=== PATIENT | male | born 1955 | race Caucasian/White ===

== ENCOUNTER 2017-04-04 15:15 | Emergency (ER) | payer OTHER, MEDICARE, MEDICAID ==
[2017-04-04] MEDS ORDERED: LIDOCAINE 5% (700 MG) TRANSDERMAL ADH..PATCH TP ONE (15:34)
[2017-04-04] MEDS ORDERED: IBUPROFEN 600 MG TABLET PO ONE (15:34)
[2017-04-04] MEDS ORDERED: TRAMADOL HCL 50 MG TABLET PO ONE (15:35)
--- NOTE | 2017-04-04 15:39 | ER Document Report ---
ED Medical Screen (RME) - General Chief Complaint: Psych Problem Stated Complaint: BACK PAIN Time Seen by Provider: 04/04/17 15:28 Notes: The patient is a 61-year-old male, past medical history bipolar, PTSD, chronic back pain for 10 years after a failed lumbar fusion surgery, presents with increasing pain over the past few weeks. [facility] He takes Valium and Tylenol without much relief of his symptoms. Patient says that the pain is so severe that he wants to kill himself now. He has a history of multiple suicide attempts, including overdoses and attempted hangings. Denies saddle anesthesia, change in bowel or bladder, numbness, tingling, fevers, chest pain, SOB or suicide attempt. PE: RRR. CTAB. Midline lumbar tenderness. Expressing suicidal thoughts. I have greeted and performed a rapid initial assessment of this patient. A comprehensive ED assessment and evaluation of the patient, analysis of test results and completion of the medical decision making process will be conducted by additional ED providers. TRAVEL OUTSIDE OF THE [place]S. IN LAST 30 DAYS: No - Related Data Allergies/Adverse Reactions: Penicillins Allergy (Unknown, Verified 04/04/17 15:20) Past Medical History - Past Medical History Cardiac Medical History: Reports: Hx Hypertension Pulmonary Medical History: Reports: Hx COPD, Hx Pneumonia - x 3 Denies: Hx Tuberculosis Endocrine Medical History: Reports: Hx Hypothyroidism Renal/ Medical History: Denies: Hx Peritoneal Dialysis Musculoskeltal Medical History: Reports Hx Arthritis Psychiatric Medical History: Reports: Hx Attention Deficit Hyperactivity Disorder, Hx Bipolar Disorder Denies: Hx Depression Past Surgical History: Reports: Hx Orthopedic Surgery - spinal fusion at lower lumbar area - Immunizations Hx Diphtheria, Pertussis, Tetanus Vaccination: Yes Physical Exam - Vital signs Vitals: Temp Pulse Resp BP Pulse Ox 98.9 F 97 18 170/99 H 95 04/04/17 15:21 04/04/17 15:21 04/04/17 15:21 04/04/17 15:21 04/04/17 15:21 Course - Vital Signs Vital signs: Temp Pulse Resp BP Pulse Ox 98.9 F 97 18 170/99 H 95 04/04/17 15:21 04/04/17 15:21 04/04/17 15:21 04/04/17 15:21 04/04/17 15:21
[2017-04-04 16:57] LABS: ABSOLUTE EOSINOPHILS # (AUTO) 0.1 10^3/uL (0.0-0.6); ABSOLUTE LYMPHOCYTES (AUTO) 1.2 10^3/uL (0.5-4.7); ABSOLUTE MONOCYTES (AUTO) 0.3 10^3/uL (0.1-1.4); ABSOLUTE NEUT (AUTO) 3.7 10^3/uL (1.7-8.2); BASOPHILS % (AUTO) 0.5 % (0-2); EOSINOPHILS % (AUTO) 2.2 % (0-6); HEMATOCRIT 41.7 % (37.9-51.0); HEMOGLOBIN 13.9 g/dL (13.5-17.0); LYMPHOCYTES % (AUTO) 22.7 % (13-45); MEAN CORPUSCULAR HEMOGLOBIN 31.4 pg (27.0-33.4); MEAN CORPUSCULAR HGB CONC 33.4 g/dL (32.0-36.0); MEAN CORPUSCULAR VOLUME 94 fl (80-97); MONOCYTES % (AUTO) 5.8 % (3-13); RED BLOOD COUNT 4.43 10^6/uL (4.35-5.55); RED CELL DISTRIBUTION WIDTH 14.3 % (11.5-14.0); SEGMENTED NEUTROPHILS % (AUTO) 68.8 % (42-78); WHITE BLOOD COUNT 5.4 10^3/uL (4.0-10.5)
[2017-04-04 17:12] LABS: ALANINE AMINOTRANSFERASE 33 U/L (21-72); ALBUMIN 4.2 g/dL (3.5-5.0); ALKALINE PHOSPHATASE 108 U/L (38-126); ANION GAP 10 (5-19); ASPARTATE AMINO TRANSFERASE 26 U/L (17-59); BILIRUBIN,DIRECT 0.3 mg/dL (0.0-0.4); BILIRUBIN,TOTAL 0.6 mg/dL (0.2-1.3); BLOOD UREA NITROGEN 9 mg/dL (7-20); CALCIUM 9.3 mg/dL (8.4-10.2); CARBON DIOXIDE 24 mmol/L (22-30); CHLORIDE 104 mmol/L (98-107); CREATININE RESULT 1.12 mg/dL (0.52-1.25); GLUCOSE 103 mg/dL (75-110); POTASSIUM 4.5 mmol/L (3.6-5.0); SODIUM 138.1 mmol/L (137-145)
[2017-04-04 17:16] LABS: ALCOHOL < 10 mg/dL (NONE DETECTED)
--- NOTE | 2017-04-04 17:35 | ER Document Report ---
ED Psych Disorder / Suicide - General Chief Complaint: Psych Problem Stated Complaint: BACK PAIN Time Seen by Provider: 04/04/17 15:28 Mode of Arrival: Ambulatory Information source: Patient TRAVEL OUTSIDE OF THE [place] IN LAST 30 DAYS: No - HPI Patient complains to provider of: Suicidal ideation Onset was: Cannot confirm Quality of pain: Achy Severity: Moderate Pain Level: 3 Suicide Risk Factors: Chronic illness, Depressed Normal mood: Yes Associated symptoms: Flat affect Similar symptoms previously: Yes Notes: Patient is a 61-year-old male with history of depression who presents to the emergency room complaining of chronic low back pain, which has worsened so bad that patient wants to kill himself by hanging, he reports a history of multiple suicide attempts in the past, in fact he did try to hang himself at one point in time but the branch that he attempted to hang himself broke prior to suicide completion, he states his overdose in the past as well, he is accompanied by his fiance who confirms that he has verbalized his recent intent to hang himself, and that they live out in the [place], she works during the day so he would have the means to actually complete a suicide attempt patient [facility] up at the [place] for [facility] health care, and unfortunately that process has been slow, states he is unable to see a psychiatrist until July of this year - Related Data Allergies/Adverse Reactions: Penicillins Allergy (Unknown, Verified 04/04/17 15:20) Home Medications: Current Home Medications Acetaminophen [Extra Strength Non-Aspirin] 3 tab PO TID 04/04/17 [History] Fluoxetine HCl 20 mg PO QAM 04/04/17 [History] Magnesium Oxide [Mag-Ox 400 mg Tablet] 800 mg PO QHS 04/04/17 [History] Pyridoxine HCl 50 mg PO QAM 04/04/17 [History] Past Medical History - General Information source: Patient - Social History Smoking Status: Current Every Day Smoker Chew tobacco use (# tins/day): No Frequency of alcohol use: Social Drug Abuse: Marijuana Family History: COPD Patient has suicidal ideation: Yes Patient has homicidal ideation: No - Past Medical History Cardiac Medical History: Reports: Hx Hypertension Pulmonary Medical History: Reports: Hx COPD, Hx Pneumonia - x 3 Denies: Hx Tuberculosis Endocrine Medical History: Reports: Hx Hypothyroidism Renal/ Medical History: Denies: Hx Peritoneal Dialysis Musculoskeltal Medical History: Reports Hx Arthritis Psychiatric Medical History: Reports: Hx Attention Deficit Hyperactivity Disorder, Hx Bipolar Disorder Denies: Hx Depression Past Surgical History: Reports: Hx Orthopedic Surgery - spinal fusion at lower lumbar area - Immunizations Hx Diphtheria, Pertussis, Tetanus Vaccination: Yes Review of Systems - Review of Systems Constitutional: No symptoms reported EENT: No symptoms reported Cardiovascular: No symptoms reported Respiratory: No symptoms reported Gastrointestinal: No symptoms reported Genitourinary: No symptoms reported Male Genitourinary: No symptoms reported Musculoskeletal: See HPI Skin: No symptoms reported Hematologic/Lymphatic: No symptoms reported Neurological/Psychological: See HPI -: Yes All other systems reviewed and negative Physical Exam - Vital signs Vitals: Temp Pulse Resp BP Pulse Ox 98.9 F 97 18 170/99 H 95 04/04/17 15:21 04/04/17 15:21 04/04/17 15:21 04/04/17 15:21 04/04/17 15:21 Interpretation: Normal - General General appearance: Appears well, Alert - HEENT Head: Normocephalic, Atraumatic Eyes: Normal Pupils: PERRL - Respiratory Respiratory status: No respiratory distress Chest status: Nontender Breath sounds: Normal Chest palpation: Normal - Cardiovascular Rhythm: Regular Heart sounds: Normal auscultation Murmur: No - Abdominal Inspection: Normal Distension: No distension Bowel sounds: Normal Tenderness: Nontender Organomegaly: No organomegaly - Back Back: Normal, Nontender - Extremities General upper extremity: Normal inspection, Nontender, Normal color, Normal ROM , Normal temperature General lower extremity: Normal inspection, Nontender, Normal color, Normal ROM , Normal temperature, Normal weight bearing. No: Niharika's sign - Neurological Neuro grossly intact: Yes Cognition: Normal Orientation: AAOx4 [place] Coma Scale Eye Opening: Spontaneous [place] Coma Scale Verbal: Oriented [place] Coma Scale Motor: Obeys Commands Juanito Coma Scale Total: 15 Speech: Normal Motor strength normal: LUE, RUE, LLE, RLE Sensory: Normal - Psychological Associated symptoms: Depressed, Flat affect - Skin Skin Temperature: Warm Skin Moisture: Dry Skin Color: Normal Course - Re-evaluation Re-evalutation: 04/04/17 22:35 Patient was evaluated by [place], mental health coordinator, she agrees that patient needs IVC criteria at this point in time, therefore IVC paperwork was completed, his medications have been ordered for the overnight further evaluation and treatment in the morning, he is otherwise medically stable for transfer or discharge - Vital Signs Vital signs: Temp Pulse Resp BP Pulse Ox 97.3 F 73 18 117/84 95 04/04/17 20:30 04/04/17 20:30 04/04/17 20:30 04/04/17 20:30 04/04/17 20:30 - Laboratory Result Diagrams: 04/04/17 16:38 04/04/17 16:38 Laboratory results interpreted by me: 04/04/17 04/04/17 16:38 16:38 RDW 14.3 H Salicylates < 1.0 L Acetaminophen < 10 L - EKG Interpretation by Me EKG shows normal: Sinus rhythm Rate: Normal Rhythm: NSR Discharge - Discharge Clinical Impression: Suicidal ideation Condition: Stable Disposition: PSYCH HOSP/UNIT
[2017-04-04 17:43] LABS: APPEARANCE,URINE CLEAR; BILIRUBIN,URINE NEGATIVE (NEGATIVE); GLUCOSE, URINE NEGATIVE (NEGATIVE); KETONES,URINE NEGATIVE (NEGATIVE); LEUKOCYTE ESTERASE,URINE NEGATIVE (NEGATIVE); NITRITE,URINE NEGATIVE (NEGATIVE); PROTEIN,URINE NEGATIVE (NEGATIVE); UROBILINOGEN,URINE NEGATIVE mg/dL (<2.0)
[2017-04-04 18:00] LABS: URINE BARBITURATES SCREEN NEGATIVE; URINE METHADONE SCREEN NEGATIVE; URINE OPIATES LOW NEGATIVE; URINE PHENCYCLIDINE SCREEN NEGATIVE
[2017-04-04] MEDS ORDERED: QUETIAPINE FUMARATE 100 MG TABLET PO SCH (22:00)
[2017-04-04] MEDS ORDERED: MAGNESIUM OXIDE 400 MG TABLET PO SCH (22:00)
[2017-04-04] MEDS ORDERED: ATORVASTATIN CALCIUM 80 MG TABLET PO SCH (22:00)
[2017-04-04] MEDS: DIAZEPAM 2 MG TABLET PO SCH (22:49)
[2017-04-04] MEDS: GABAPENTIN 400 MG CAPSULE PO SCH (22:50)
--- NOTE | 2017-04-04 23:41 | EKG REPORT ---
SEVERITY:- OTHERWISE NORMAL ECG - SINUS RHYTHM BORDERLINE LEFT AXIS DEVIATION : Confirmed by: Maci Treviño 04-Apr-2017 23:40:42
[2017-04-05] MEDS: GABAPENTIN 400 MG CAPSULE PO SCH (06:31)
[2017-04-05] MEDS ORDERED: PYRIDOXINE HCL 50 MG TABLET PO SCH (08:00)
[2017-04-05] MEDS ORDERED: FLUOXETINE HCL 20 MG CAPSULE PO SCH (08:00)
[2017-04-05] MEDS: DIAZEPAM 2 MG TABLET PO SCH (09:17)
[2017-04-05] MEDS ORDERED: TRAMADOL HCL 50 MG TABLET PO PRN (09:58)
[2017-04-05] MEDS ORDERED: IBUPROFEN 600 MG TABLET PO PRN (09:59)
[2017-04-05] MEDS ORDERED: [UNRECOGNIZED DRUG - REMARK] PO SCH (10:00)
[2017-04-05] MEDS ORDERED: LIDOCAINE 5% (700 MG) TRANSDERMAL ADH..PATCH TP SCH (10:00)
[2017-04-05] MEDS ORDERED: LAMOTRIGINE 100 MG TABLET PO SCH (10:00)
[2017-04-05] MEDS ORDERED: DIAZEPAM 5 MG TABLET PO SCH (10:00)
--- NOTE | 2017-04-05 10:42 | ER Document Report ---
Doctor's Note Notes: 04/05/17 10:41 I have evaluated this patient this am and has no c/o at this time. He thought the Motrin, Lidoderm patch and Tramadol helped with his back pain. Will continue this regimen. Feels all of their needs are being met and physical exam is normal. Awaiting dispositon per mental [facility]. 04/05/17 11:33 Pt seen by mental health. Patient is no longer suicidal. He feels much better and is requesting discharge. Patient has an appointment with the [place] psychiatry April 14. Per mental health, no new medication adjustments.
--- NOTE | 2017-04-05 11:13 | ER Document Report ---
ED Psych Disorder / Suicide - General Information source: Patient, Relative, H Records TRAVEL OUTSIDE OF THE [place]. IN LAST 30 DAYS: No - HPI Patient complains to provider of: Suicidal ideation, Suicidal plan - plans to hang himself Onset: Just prior to arrival Onset was: Sudden Suicide Risk Factors: Bipolar, Frightened friends/family, Prior suicide attempt - pt states he has tried to kill himself multiple times, Substance abuse Normal mood: Yes Associated symptoms: Normal affect, Normal mood, Depressed - per pt Similar symptoms previously: Yes [facility] <LAN PERRIN - Last Filed: 04/05/17 11:13> <CLEM ENRIQUEZ - Last Filed: 04/05/17 11:33> - General Chief Complaint: Psych Problem Stated Complaint: BACK PAIN Time Seen by Provider: 04/04/17 15:28 - HPI Notes: Patient is a 61 year old male who presented via his due to suicidal ideations. Patient states he is tired of the chronic back pain. Patient states he has been Bipolar since he was 9 years old and feels his depression is beyond his control. Patient states he feels as though he is in a cave waiting to come out, meaning he is waiting for this episode to escalate. Patient states he would hang himself in one of the trees. Patient states that he has attempted suicide, "more times then he can count," and has failed each time. Patient states [facility], but the appointments are not scheduled until June. Patient states that he grew up in a mental institution and 2 months after he got out, he enlisted in the [employer]; however only lasted 1.5 months. Patient states he resides with his fianirudh. Patient denies any ongoing drug use, but at the time of this report he has not provided a urine sample for toxicology. Patient does have a positive history of cocaine and polysub abuse, and was admitted for cardiac issues stemming from his cocaine abuse last year. Patient states he wants help before things get worse. Hortensia is bedside and states she is concerned because she works from [employer] and he is home alone. She states she is concerned he will follow through with his plan to hang himself, because [place]. Patient is A&O. Mood is euthymic with smiling affect. Patient endorses suicidal ideations with plan. Patient denies homicidal ideations, intent, plan , or means. Patient denies A/V H; delusions not noted. Thought processes were organized. Conversational speech was WNL. Intellectual abilities were estimated within average range. Attention and focus were fair. Insight, judgment, and impulse control were poor. Unspecified Bipolar Disorder Polysubstance Use Disorder, per history R/O Personality Disorder Patient is recommended for IVC for further evaluation and disposition. Patient presents with suicidal ideations and plan. I consulted with Dr. Kaur in regards to the care and management of this patient. ED MD is in agreement with disposition and recommendations. 04/05/17 Conducted check in with patient who is a 61 year old male under IVC at [facility]. Patient initially presented voluntarily seeking assistance for suicidal ideations with plan to hang himself. Patient this morning states he is feeling better and has had time to process. He states he can trace this episode back to Monday, when he had a verbal disagreement with his hortensia's daughter's boyfriend. He states they argued over him receiving VA benefits and the boyfriend was stating he should not receive VA benefits because he was only in the service for a little over a month. Patient states then yesterday, he found out his hortensia's son may be moving in with them, whom he states is a 31 year old male who smokes pot. Discussed with patient that he himself was positive for marijuana. Patient discussed that he is no longer suicidal and can correlate the increase in back pain to his emotional stressors. Patient denies SI/I Patient is A&O. Mood is euthymic with smiling affect. Patient denies SI/HI, intent, plan, or means. Patient denies A/VH; delusions not noted. Thought processes were organized. Conversational speech was WNL. Intellectual abilities were estimated within average range. Attention and focus were fair. Insight, judgment, and impulse control were poor. Unspecified Bipolar Disorder Polysubstance Use Disorder, per history R/O Personality Disorder Patient is psychiatrically cleared for discharge and recommended for rescind IVC. Patient denies suicidal/homicidal ideations, intent or plan. [facility] and he has an appointment scheduled for April 14 at 1000. I consulted with Dr. Kaur in regards to the care and management of this patient. (LAN PERRIN) - Related Data Allergies/Adverse Reactions: Penicillins Allergy (Unknown, Verified 04/04/17 15:20) Home Medications: Current Home Medications Acetaminophen [Extra Strength Non-Aspirin] 3 tab PO TID 04/04/17 [History] Fluoxetine HCl 20 mg PO QAM 04/04/17 [History] Magnesium Oxide [Mag-Ox 400 mg Tablet] 800 mg PO QHS 04/04/17 [History] Pyridoxine HCl 50 mg PO QAM 04/04/17 [History] Past Medical History - Social History Smoking Status: Current Every Day Smoker Chew tobacco use (# tins/day): No Smoking Education Provided: Yes Frequency of alcohol use: Social Drug Abuse: Cocaine - hx of, Marijuana, Prescription drugs - benzo Lives with: Spouse/Significant other Family History: COPD Patient has suicidal ideation: No Patient has homicidal ideation: No - Past Medical History Cardiac Medical History: Reports: Hx Hypertension Pulmonary Medical History: Reports: Hx COPD, Hx Pneumonia - x 3 Denies: Hx Tuberculosis Endocrine Medical History: Reports: Hx Hypothyroidism Renal/ Medical History: Denies: Hx Peritoneal Dialysis Musculoskeltal Medical History: Reports Hx Arthritis Psychiatric Medical History: Reports: Hx Attention Deficit Hyperactivity Disorder, Hx Bipolar Disorder Denies: Hx Depression Past Surgical History: Reports: Hx Orthopedic Surgery - spinal fusion at lower lumbar area - Immunizations Hx Diphtheria, Pertussis, Tetanus Vaccination: Yes <LAN PERRIN - Last Filed: 04/05/17 11:13> Course - Laboratory Result Diagrams: 04/04/17 16:38 04/04/17 16:38 <LAN PERRIN - Last Filed: 04/05/17 11:13> - Laboratory Result Diagrams: 04/04/17 16:38 04/04/17 16:38 <CLEM ENRIQUEZ - Last Filed: 04/05/17 11:33> - Vital Signs Vital signs: Temp Pulse Resp BP Pulse Ox 98.1 F 79 19 151/85 H 99 04/05/17 06:36 04/05/17 06:36 04/05/17 06:36 04/05/17 06:36 04/05/17 06:36 - Laboratory Laboratory results interpreted by me: 04/04/17 04/04/17 16:38 16:38 RDW 14.3 H Salicylates < 1.0 L Acetaminophen < 10 L Discharge <LAN PERRIN - Last Filed: 04/05/17 11:13> <CLEM ENRIQUEZ - Last Filed: 04/05/17 11:33> - Discharge Clinical Impression: Suicidal ideation, Bipolar disease, chronic Condition: Stable Disposition: HOME, SELF-CARE Additional Instructions: Suicidal Ideation Suicidal ideation is a common medical term for thoughts about suicide, which may be as detailed as a formulated plan, without the suicidal act itself. Although most people who undergo suicidal ideation do not commit suicide, some go on to make suicide attempts. The range of suicidal ideation varies greatly from fleeting to detailed planning, role playing, and unsuccessful attempts. Bipolar Disorder Bipolar disorder is also called manic-depressive disorder. Depression alternates with brain hyperactivity called trey. Each phase lasts from several days to a few weeks. We don't know exactly what causes bipolar disorder , but it's treatable. During the "manic phase," you may feel elated and energetic. You may have racing thoughts, rapid speech, increased activity, and grandiose ideas. During this time, you may not realize how poor your judgement is. Inappropriate spending, drug abuse, excessive alcohol use, marriage problems, and irresponsible sexual behavior are common during the manic phase. During the "depressive phase," you might feel depressed, guilty, worthless , fatigued, and unable to concentrate. You might have thoughts of suicide. Good treatments are available for bipolar disorder. [place] is a classic drug for bipolar disorder, and is still often useful. If the manic phase is very mild, an antidepressant alone can be prescribed. If the manic phase is very severe, an antipsychotic medicine (such as Haldol) may be needed. The treatment must be matched to your symptoms, so it's important to work closely with your psychiatric care provider. Contact your physician, the hospital emergency center, crisis line, or your counsellor if you are losing control or having self-destructive thoughts. Please follow through with your appointment at the [facility] April 14 at 1000. Please return if your symptoms worsen. Referrals: [facility] [Provider Group] - 04/14/17 10:00 am
[2017-04-05 11:54] VITALS: BP 135/89
== END 2017-04-05 11:54 | disposition home or self-care (01) ==
LOC: ER 15:15
DX: R45.851 Suicidal ideations (principal); F31.9 Bipolar disorder, unspecified; F43.10 Post-traumatic stress disorder, unspecified; G89.29 Other chronic pain; M54.9 Dorsalgia, unspecified; I10 Essential (primary) hypertension; F17.200 Nicotine dependence, unspecified, uncomplicated; J44.9 Chronic obstructive pulmonary disease, unspecified; E03.9 Hypothyroidism, unspecified; F19.10 Other psychoactive substance abuse, uncomplicated; Z88.0 Allergy status to penicillin; Z98.1 Arthrodesis status
CPT/HCPCS: 93005; 99284; 36415; 80307 ×4; 85025; 80053; 81001; 93010; J3490 ×4

== ENCOUNTER → 2017-04-26 | Outpatient (CLI) | payer MEDICARE, MEDICAID ==
--- NOTE | 2017-04-26 16:53 | RADIOLOGY REPORT (SQ) ---
EXAM DESCRIPTION: MRI LUMBAR SPINE COMBO COMPLETED DATE/TIME: 04/26/2017 3:03 pm REASON FOR STUDY: RADICULOPTHY, LUMBAR REGION M54.16 RADICULOPATHY, LUMBAR REGION COMPARISON: 2016 radiographs. TECHNIQUE: Sagittal and Axial imaging includes T1, T1 post gadolinium, T2, STIR and gradient echo se quences. Coronal T2/HASTE imaging. CONTRAST TYPE AND DOSE: 15 mL Multihance. RENAL FUNCTION: GFR > 60. LIMITATIONS: None. FINDINGS: VISUALIZED UPPER ABDOMEN: Limited evaluation. No acute or suspicious findings suggested. SEGMENTATION: No transitional anatomy. The lowest well-developed disc space is labeled L5-S1. ALIGNMENT: Anatomic. VERTEBRAE: Intact. No fractures. BONE MARROW: Marrow edema along the T12-L1 endplates. This appears to be related to disc disease. N o fracture evident. No marrow replacement process. No suspicious bone lesion. DISC SIGNAL: Multilevel decreased signal and height. POSTERIOR ELEMENTS: L3 through L5 dorsal decompressions. HARDWARE: Posterior artifact related to bilateral rods and screws spanning L2 through S1. CORD AND CONUS: Normal in size and signal intensity. Conus at the appropriate level. SOFT TISSUES: No aortic aneurysm seen. No bulky retroperitoneal adenopathy or mass. Distended urinar y bladder, incompletely evaluated. L1-L2: Broad disc osteophyte complex. Mild narrowing of the central canal. Left greater than right foraminal narrowing, relatively mild. L2-L3: No significant spinal stenosis or exit foraminal stenosis. L3-L4: No significant spinal stenosis or exit foraminal stenosis. L4-L5: No significant spinal stenosis or exit foraminal stenosis. L5-S1: No significant spinal stenosis or exit foraminal stenosis. LOWER THORACIC: Broad protrusion with slight asymmetric left paracentral extension. This effaces the anterior CSF space and contacts the conus. Posterior element overgrowth with ligament thickening co ntributing to noncritical central narrowing. Fairly mild bilateral foraminal encroachment. SACRUM: Visualized upper sacrum intact. ENHANCEMENT: No abnormal enhancement. OTHER: No other significant findings. IMPRESSION: 1. No suggestion of significant spinal stenosis from L2 through S1, the operative level s. 2. Disc disease at T12-L1. Broad hernia with reactive endplate edema. No bharti conus impingeme nt or high-grade stenosis. 3. Disc disease at L1-2 without significant stenosis. TECHNICAL DOCUMENTATION: JOB ID: [id number] [facility] [employer]- All Rights Reserved
== END ==
LOC: RAD 12:44
PROVIDERS: ATTEND Orthopaedic Surgery
DX: M54.16 Radiculopathy, lumbar region (principal)
CPT/HCPCS: 72158; A9577

== ENCOUNTER 2017-11-29 20:50 | Emergency (ER) | payer MEDICARE, MEDICAID ==
--- NOTE | 2017-11-29 22:25 | RADIOLOGY REPORT (SQ) ---
EXAM DESCRIPTION: CHEST SINGLE VIEW COMPLETED DATE/TIME: 11/29/2017 9:50 pm REASON FOR STUDY: shortness of breath COMPARISON: 09/02/2016 EXAM PARAMETERS: NUMBER OF VIEWS: One view. TECHNIQUE: Single frontal radiographic view of the chest acquired. RADIATION DOSE: NA LIMITATIONS: None. FINDINGS: LUNGS AND PLEURA: No acute opacities, masses or pneumothorax. No pleural effusion. MEDIASTINUM AND HILAR STRUCTURES: Stable. HEART AND VASCULAR STRUCTURES: Heart normal in size. Normal vasculature. BONES: No acute findings. HARDWARE: None in the chest. OTHER: No other significant finding. IMPRESSION: NO ACUTE RADIOGRAPHIC FINDING IN THE CHEST. TECHNICAL DOCUMENTATION: JOB ID: [id number] [id number] 2010 [employer]- All Rights Reserved
--- NOTE | 2017-11-29 22:43 | ER Document Report ---
ED Medical Screen (RME) - General Chief Complaint: Breathing Difficulty Stated Complaint: SHORTNESS OF BREATH CHEST PAIN Time Seen by Provider: 11/29/17 22:40 Mode of Arrival: Ambulatory Information source: Patient Notes: 62 yo COPD smoker, bipolar, PTSD, ADHD, chronic kidney dx stage 3, [facility], dx 3 years [facility] has increased cough for a week. Blood (red and brown) twice a day. Left sided chest pain for 3-4 days, constant pressure associated with increased exertional shortness of breath. No nebulizer meds. TRAVEL OUTSIDE OF THE [place]. IN LAST 30 DAYS: No - Related Data Allergies/Adverse Reactions: Penicillins Allergy (Unknown, Verified 04/04/17 15:20) Past Medical History - Past Medical History Cardiac Medical History: Reports: Hx Hypertension Pulmonary Medical History: Reports: Hx COPD, Hx Pneumonia - x 3 Denies: Hx Tuberculosis Endocrine Medical History: Reports: Hx Hypothyroidism Renal/ Medical History: Denies: Hx Peritoneal Dialysis Musculoskeltal Medical History: Reports Hx Arthritis Psychiatric Medical History: Reports: Hx Attention Deficit Hyperactivity Disorder, Hx Bipolar Disorder Denies: Hx Depression Past Surgical History: Reports: Hx Orthopedic Surgery - spinal fusion at lower lumbar area - Immunizations Hx Diphtheria, Pertussis, Tetanus Vaccination: Yes Physical Exam - Vital signs Vitals: Temp Pulse Resp BP Pulse Ox 99.5 F 98 24 H 152/87 H 95 11/29/17 20:58 11/29/17 20:58 11/29/17 20:58 11/29/17 20:58 11/29/17 20:58 Course - Vital Signs Vital signs: Temp Pulse Resp BP Pulse Ox 99.5 F 98 24 H 152/87 H 95 11/29/17 20:58 11/29/17 20:58 11/29/17 20:58 11/29/17 20:58 11/29/17 20:58
[2017-11-29] MEDS ORDERED: IPRATROPIUM/ALBUTEROL 0.5-2.5 MG/3 ML AMPUL NEB ONE (22:45)
[2017-11-29 22:50] LABS: ABSOLUTE EOSINOPHILS # (AUTO) 0.3 10^3/uL (0.0-0.6); ABSOLUTE LYMPHOCYTES (AUTO) 2.2 10^3/uL (0.5-4.7); ABSOLUTE MONOCYTES (AUTO) 0.4 10^3/uL (0.1-1.4); ABSOLUTE NEUT (AUTO) 4.5 10^3/uL (1.7-8.2); BASOPHILS % (AUTO) 0.7 % (0-2); EOSINOPHILS % (AUTO) 4.5 % (0-6); HEMATOCRIT 40.5 % (37.9-51.0); HEMOGLOBIN 13.8 g/dL (13.5-17.0); LYMPHOCYTES % (AUTO) 28.9 % (13-45); MEAN CORPUSCULAR HEMOGLOBIN 31.4 pg (27.0-33.4); MEAN CORPUSCULAR VOLUME 92 fl (80-97); MONOCYTES % (AUTO) 5.7 % (3-13); PLATELET COUNT 275 10^3/uL (150-450); RED BLOOD COUNT 4.38 10^6/uL (4.35-5.55); SEGMENTED NEUTROPHILS % (AUTO) 60.2 % (42-78); TOTAL CELLS COUNTED % (AUTO) 100 %; WHITE BLOOD COUNT 7.5 10^3/uL (4.0-10.5)
[2017-11-29 22:58] LABS: INTERNATIONAL RATION (INR) 0.83
[2017-11-29 22:59] LABS: PARTIAL THROMBOPLASTIN TIME 30.1 SEC (23.5-35.8)
[2017-11-29 23:06] LABS: ALANINE AMINOTRANSFERASE 31 U/L (21-72); ALBUMIN 4.5 g/dL (3.5-5.0); ALKALINE PHOSPHATASE 106 U/L (38-126); ANION GAP 12 (5-19); ASPARTATE AMINO TRANSFERASE 24 U/L (17-59); BILIRUBIN,DIRECT 0.2 mg/dL (0.0-0.4); BILIRUBIN,TOTAL 0.3 mg/dL (0.2-1.3); BLOOD UREA NITROGEN 18 mg/dL (7-20); CALCIUM 9.7 mg/dL (8.4-10.2); CARBON DIOXIDE 25 mmol/L (22-30); CHLORIDE 105 mmol/L (98-107); CREATINE KINASE 126 U/L (55-170); GLUCOSE 95 mg/dL (75-110); POTASSIUM 4.8 mmol/L (3.6-5.0); SODIUM 141.6 mmol/L (137-145); TOTAL PROTEIN 6.9 g/dL (6.3-8.2)
[2017-11-29 23:29] LABS: CREATINE KINASE MB 1.44 ng/mL (<4.55); NT PRO BNP 44 pg/mL (5-900)
[2017-11-29 23:31] LABS: TROPONIN I < 0.012 ng/mL
--- NOTE | 2017-11-30 01:26 | ER Document Report ---
ED General - General Mode of Arrival: Ambulatory TRAVEL OUTSIDE OF THE [place] IN LAST 30 DAYS: No <ESTEFANY BOURNE Reuben - Last Filed: 11/30/17 01:22> - General Information source: Patient <BENSTAN - Last Filed: 11/30/17 01:33> - General Chief Complaint: Breathing Difficulty Stated Complaint: SHORTNESS OF BREATH CHEST PAIN Time Seen by Provider: 11/29/17 22:40 Notes: Patient is a 62-year-old male presenting to the emergency department complaining of cough and congestion onset 3 weeks ago worsening 3 days ago. Patient states that 3 days ago he noticed blood in his sputum. Patient states that he was diagnosed with COPD several years ago and was placed on breathing treatment but he has not used his breathing treatments in several years. Patient also complains of night sweats. Patient denies chest pain. (STAN CONTRERAS) - Related Data Allergies/Adverse Reactions: Penicillins Allergy (Unknown, Verified 04/04/17 15:20) Past Medical History - General Information source: Patient - Social History Smoking Status: Current Every Day Smoker Family History: COPD Patient has suicidal ideation: No Patient has homicidal ideation: No - Past Medical History Cardiac Medical History: Reports: Hx Hypertension Pulmonary Medical History: Reports: Hx COPD, Hx Pneumonia - x 3 Denies: Hx Tuberculosis Endocrine Medical History: Reports: Hx Hypothyroidism Renal/ Medical History: Denies: Hx Peritoneal Dialysis Musculoskeltal Medical History: Reports Hx Arthritis Psychiatric Medical History: Reports: Hx Attention Deficit Hyperactivity Disorder, Hx Bipolar Disorder Denies: Hx Depression Past Surgical History: Reports: Hx Orthopedic Surgery - spinal fusion at lower lumbar area - Immunizations Hx Diphtheria, Pertussis, Tetanus Vaccination: Yes <ESTEFANY BOURNE - Last Filed: 11/30/17 01:22> - General Information source: Patient - Social History Smoking Status: Current Every Day Smoker Family History: COPD Patient has suicidal ideation: No Patient has homicidal ideation: No - Past Medical History Cardiac Medical History: Reports: Hx Hypertension Pulmonary Medical History: Reports: Hx COPD, Hx Pneumonia Endocrine Medical History: Reports: Hx Hypothyroidism Musculoskeltal Medical History: Reports Hx Arthritis Psychiatric Medical History: Reports: Hx Attention Deficit Hyperactivity Disorder, Hx Bipolar Disorder <STAN CONTRERAS - Last Filed: 11/30/17 01:33> Review of Systems - Review of Systems Constitutional: No symptoms reported EENT: No symptoms reported Cardiovascular: No symptoms reported Respiratory: See HPI, Cough Gastrointestinal: No symptoms reported Genitourinary: No symptoms reported Male Genitourinary: No symptoms reported Musculoskeletal: No symptoms reported Skin: No symptoms reported Hematologic/Lymphatic: No symptoms reported Neurological/Psychological: No symptoms reported -: Yes All other systems reviewed and negative <STAN CONTRERAS - Last Filed: 11/30/17 01:33> Physical Exam <ESTEFANY BOURNE - Last Filed: 11/30/17 01:22> <BENSTAN THOMAS - Last Filed: 11/30/17 01:33> - Vital signs Vitals: Temp Pulse Resp BP Pulse Ox 99.5 F 98 24 H 152/87 H 95 11/29/17 20:58 11/29/17 20:58 11/29/17 20:58 11/29/17 20:58 11/29/17 20:58 - Notes Notes: GENERAL: Alert, interacts well. No acute distress. HEAD: Normocephalic, atraumatic. EYES: Pupils equal, round, and reactive to light. Extraocular movements intact. ENT: Oral mucosa moist, tongue midline. NECK: Full range of motion. Supple. Trachea midline. LUNGS: Good air movement, prolonged expiratory phase with wheezing. No respiratory distress. HEART: Regular rate and rhythm. No murmurs, gallops, or rubs. ABDOMEN: Soft, non-tender. Non-distended. Bowel sounds present in all 4 quadrants. EXTREMITIES: Moves all 4 extremities spontaneously. NEUROLOGICAL: Alert and oriented x3. Normal speech. PSYCH: Normal affect, normal mood. SKIN: Warm, dry, normal turgor. No rashes or lesions noted. (BENCAROLEESHARIFA) Course - Laboratory Result Diagrams: 11/29/17 22:32 18 22:32 <ESTEFANY BOURNE - Last Filed: 11/30/17 01:22> - Laboratory Result Diagrams: 11/29/17 22:32 11/29/17 22:32 <STAN CONTRERAS - Last Filed: 11/30/17 01:33> - Re-evaluation Re-evalutation: 11/30/17 01:22 Patient's labs within normal limits are nonsignificant with mild peribronchial cuffing but no signs of consolidation or effusions on chest x-ray. Patient continues to smoke signs and symptoms consistent with bronchitis. Due to history of COPD will provide 5 days of steroids as well as antibiotics with albuterol puffer to take home. He is to follow-up with the [facility] primary care physician for reevaluation in the next 3-4 days or sooner to the emergency department if symptoms are worsening (ESTEFANY BOURNE) - Vital Signs Vital signs: Temp Pulse Resp BP Pulse Ox 99.5 F 98 13 129/78 H 94 11/29/17 20:58 11/29/17 20:58 11/30/17 00:01 11/30/17 00:01 11/30/17 00:01 Discharge <ESTEFANY BOURNE - Last Filed: 11/30/17 01:22> <STAN CONTRERAS - Last Filed: 11/30/17 01:33> - Discharge Clinical Impression: Bronchitis COPD (chronic obstructive pulmonary disease) Qualifiers: COPD type: unspecified COPD Qualified Code(s): J44.9 - Chronic obstructive pulmonary disease, unspecified Condition: Good Disposition: HOME, SELF-CARE Additional Instructions: Please take medications as prescribed and use albuterol inhaler provided 2 puffs every 4 hours while awake for the next 2 days and then 2 puffs every 4 hours thereafter as needed. Please follow-up with your primary care physician at the [facility] for reevaluation in the next 3-4 days or sooner in the emergency department if symptoms are worsening. Prescriptions: Levofloxacin [Levaquin 750 mg Tablet] 750 mg PO DAILY #5 tablet Prednisone [Deltasone 20 mg Tablet] 2 tab PO DAILY 5 Days #10 tablet Scribe Documentation - Scribe Written by Eli:: Eli Sykes, 11/30/2017 01:31 acting as scribe for :: Tin <STAN CONTRERAS - Last Filed: 11/30/17 01:33>
[2017-11-30] MEDS ORDERED: ALBUTEROL SULFATE HFA (90 MCG/PUFF) 8 GM MDI (1 MDI/ER DISP) IH PRN (01:30)
[2017-11-30 01:33] VITALS: BP 131/80
[2017-11-30] MEDS ORDERED: PREDNISONE 20 MG TABLET PO ONE (01:41)
--- NOTE | 2017-11-30 08:01 | EKG REPORT ---
SEVERITY:- ABNORMAL ECG - SINUS RHYTHM LEFT AXIS DEVIATION : Confirmed by: Delio Akbar MD 30-Nov-2017 08:00:03
== END 2017-11-30 01:47 | disposition home or self-care (01) ==
LOC: ER 20:50
DX: J40 Bronchitis, not specified as acute or chronic (principal); J44.9 Chronic obstructive pulmonary disease, unspecified; R05 Cough; R61 Generalized hyperhidrosis; F17.200 Nicotine dependence, unspecified, uncomplicated; I10 Essential (primary) hypertension; Z88.0 Allergy status to penicillin
CPT/HCPCS: 93005; 94640; 99285; 36415; 82553; 82550; 85025; 85610; 85730; 80053; 84484; 83880; 71045; 93010; A9270 ×2; J3490; J7512; J7620

== ENCOUNTER 2019-02-22 10:17 | Emergency (ER) | payer MEDICARE, MEDICAID ==
--- NOTE | 2019-02-22 10:34 | ER Document Report ---
ED Medical Screen (RME) - General Chief Complaint: Diarrhea Stated Complaint: SHAKING Time Seen by Provider: 02/22/19 10:24 Mode of Arrival: Wheelchair Information source: Patient Notes: 63-year-old male presents to ED for complaint of confusion and shaking and according to convulsion yesterday. states she is been very confused yesterday and today. She states that he has a history of seizures and did not take his medications yesterday or today just slept all day. She states that he quit drinking and smoking 3 months ago. States he has been shaking chills and sweating all day yesterday. Patient is acting confused and rambling at this time. I have greeted and performed a rapid initial assessment of this patient. A comprehensive ED assessment and evaluation of the patient, analysis of test results and completion of medical decision making process will be conducted by an additional ED providers. Dictation of this chart was performed using voice recognition software; therefore, there may be some unintended grammatical errors. TRAVEL OUTSIDE OF THE [place] IN LAST 30 DAYS: No - Related Data Allergies/Adverse Reactions: Penicillins Allergy (Unknown, Verified 02/22/19 10:18) Past Medical History - Social History Chew tobacco use (# tins/day): No Frequency of alcohol use: None Drug Abuse: None - Past Medical History Cardiac Medical History: Reports: Hx Hypertension Pulmonary Medical History: Reports: Hx COPD, Hx Pneumonia Denies: Hx Tuberculosis Endocrine Medical History: Reports: Hx Hypothyroidism Renal/ Medical History: Denies: Hx Peritoneal Dialysis Musculoskeltal Medical History: Reports Hx Arthritis Psychiatric Medical History: Reports: Hx Attention Deficit Hyperactivity Disorder, Hx Bipolar Disorder Denies: Hx Depression Past Surgical History: Reports: Hx Orthopedic Surgery - spinal fusion at lower lumbar area - Immunizations Hx Diphtheria, Pertussis, Tetanus Vaccination: Yes Physical Exam - Vital signs Vitals: Temp Pulse Resp BP Pulse Ox 98.3 F 114 H 16 145/113 H 100 02/22/19 10:02/22/19 10:02/22/19 10:02/22/19 10:02/22/19 10:22 Course - Vital Signs Vital signs: Temp Pulse Resp BP Pulse Ox 98.3 F 114 H 16 145/113 H 100 02/22/19 10:02/22/19 10:02/22/19 10:22 02/22/19 10:22 02/22/19 10:22
[2019-02-22 11:11] LABS: ABSOLUTE LYMPHOCYTES (AUTO) 1.3 10^3/uL (0.5-4.7); ABSOLUTE MONOCYTES (AUTO) 0.4 10^3/uL (0.1-1.4); ABSOLUTE NEUT (AUTO) 6.3 10^3/uL (1.7-8.2); BASOPHILS % (AUTO) 0.1 % (0-2); HEMATOCRIT 42.1 % (37.9-51.0); HEMOGLOBIN 14.3 g/dL (13.5-17.0); LYMPHOCYTES % (AUTO) 16.3 % (13-45); MEAN CORPUSCULAR HEMOGLOBIN 30.7 pg (27.0-33.4); MEAN CORPUSCULAR HGB CONC 34.1 g/dL (32.0-36.0); MEAN CORPUSCULAR VOLUME 90 fl (80-97); MONOCYTES % (AUTO) 5.5 % (3-13); PLATELET COUNT 343 10^3/uL (150-450); RED BLOOD COUNT 4.68 10^6/uL (4.35-5.55); SEGMENTED NEUTROPHILS % (AUTO) 78.1 % (42-78); TOTAL CELLS COUNTED % (AUTO) 100 %
[2019-02-22 11:31] LABS: ALANINE AMINOTRANSFERASE 25 U/L (21-72); ALBUMIN 4.6 g/dL (3.5-5.0); ALKALINE PHOSPHATASE 165 U/L (38-126); ANION GAP 17 (5-19); ASPARTATE AMINO TRANSFERASE 23 U/L (17-59); BILIRUBIN,DIRECT 0.5 mg/dL (0.0-0.4); BLOOD UREA NITROGEN 26 mg/dL (7-20); CALCIUM 10.1 mg/dL (8.4-10.2); CARBON DIOXIDE 21 mmol/L (22-30); CHLORIDE 106 mmol/L (98-107); GLUCOSE 139 mg/dL (75-110); POTASSIUM 4.3 mmol/L (3.6-5.0); SODIUM 143.5 mmol/L (137-145); TOTAL PROTEIN 8.2 g/dL (6.3-8.2)
--- NOTE | 2019-02-22 11:41 | RADIOLOGY REPORT (SQ) ---
EXAM DESCRIPTION: CT HEAD WITHOUT COMPLETED DATE/TIME: 02/22/2019 11:15 am REASON FOR STUDY: possible seizure and confusion COMPARISON: 01/29/2014 TECHNIQUE: Axial images acquired through the brain without intravenous contrast. Images reviewed wi th bone, brain and subdural windows. Additional sagittal and coronal reconstructions were generated. Images stored on PACS. All CT scanners at this facility use dose modulation, iterative reconstruction, and/or weight based d osing when appropriate to reduce radiation dose to as low as reasonably achievable (ALARA). [facility]: Dose Right [facility]: CareDose [facility]: Dose Right [facility]: Teradose 4D [facility]: Smart [employer] RADIATION DOSE: CT Rad equipment meets quality standard of care and radiation dose reduction techniq ues were employed. CTDIvol: 53.2 mGy. DLP: 1070 mGy-cm. mGy. LIMITATIONS: None. FINDINGS: VENTRICLES: Normal size and contour. CEREBRUM: No masses. No hemorrhage. No midline shift. No evidence for acute infarction. Normal gra y/white matter differentiation. No areas of low density in the white matter. CEREBELLUM: No masses. No hemorrhage. No alteration of density. No evidence for acute infarction. EXTRAAXIAL SPACES: No fluid collections. No masses. ORBITS AND GLOBE: No intra- or extraconal masses. Normal contour of globe without masses. CALVARIUM: No fracture. PARANASAL SINUSES: No fluid or mucosal thickening. SOFT TISSUES: No mass or hematoma. OTHER: No other significant finding. IMPRESSION: NORMAL BRAIN CT WITHOUT CONTRAST. EVIDENCE OF ACUTE STROKE: NO. COMMENT: Quality ID # [id number]: Final reports with documentation of one or more dose reduction techniques (e.g., Automated exposure control, adjustment of the mA and/or kV according to patient size, use of iterative reconstruction technique) TECHNICAL DOCUMENTATION: JOB ID: [id number] [facility]- All Rights Reserved Reading location - IP/workstation name: [email or web address]
[2019-02-22 11:50] LABS: TROPONIN I < 0.012 ng/mL
--- NOTE | 2019-02-22 12:13 | ER Document Report ---
ED General - General Chief Complaint: Diarrhea Stated Complaint: SHAKING Time Seen by Provider: 02/22/19 10:24 Mode of Arrival: Wheelchair Notes: 63-year-old male presents to the ER complaining of shaking confusion chills. Initially the patient was not sure what had happened but wants him and his conferred there was a mixup in his medicine last night he gets like this when he accidentally doubled up his gabapentin. He said he felt very shaky and jittery. His said he was a little more confused. He denies any extremity numbness tingling or weakness. Denies chest pain denies shortness of breath. TRAVEL OUTSIDE OF THE [place] IN LAST 30 DAYS: No - Related Data Allergies/Adverse Reactions: Penicillins Allergy (Unknown, Verified 02/22/19 10:18) Past Medical History - General Information source: Patient - Social History Smoking Status: Former Smoker Chew tobacco use (# tins/day): No Frequency of alcohol use: None Drug Abuse: None Family History: COPD Patient has suicidal ideation: No Patient has homicidal ideation: No - Past Medical History Cardiac Medical History: Reports: Hx Hypertension Pulmonary Medical History: Reports: Hx COPD, Hx Pneumonia Denies: Hx Tuberculosis Endocrine Medical History: Reports: Hx Hypothyroidism Renal/ Medical History: Denies: Hx Peritoneal Dialysis Musculoskeletal Medical History: Reports Hx Arthritis Psychiatric Medical History: Reports: Hx Attention Deficit Hyperactivity Disorder, Hx Bipolar Disorder Denies: Hx Depression Past Surgical History: Reports: Hx Orthopedic Surgery - spinal fusion at lower lumbar area - Immunizations Hx Diphtheria, Pertussis, Tetanus Vaccination: Yes Review of Systems - Review of Systems Constitutional: denies: Chills, Fever Gastrointestinal: Diarrhea, Nausea. denies: Abdominal pain, Vomiting Genitourinary: denies: Dysuria Neurological/Psychological: Confusion. denies: Hallucinations, Headaches, Tremor -: Yes All other systems reviewed and negative Physical Exam - Vital signs Vitals: Temp Pulse Resp BP Pulse Ox 98.3 F 114 H 16 145/113 H 100 02/22/19 10:22 02/22/19 10:22 02/22/19 10:22 02/22/19 10:22 02/22/19 10:22 - Notes Notes: GENERAL_APPEARANCE: well_nourished, alert, cooperative, no_acute_distress, no_obvious_discomfort. VITALS: reviewed, see vital signs table. HEAD: no_swelling\tenderness on the head. EYES: PERRL, EOMI, conjunctiva_clear. NOSE: no_nasal_discharge. MOUTH: (-)decreased moisture. THROAT: no_tonsilar_inflammation, no_airway_obstruction. no_lymphadenopathy NECK: supple, no_neck_tenderness, (-)thyromegaly. BACK: no_back_tenderness. CHEST_WALL: no_chest_tenderness. LUNGS: no_wheezing, no_rales, no_rhonchi, (-)accessory muscle use, good air exchange bilateral. HEART: normal_rate, normal_rhythm, normal_S1, normal_S2, (-)S3, (-)S4, no_murmur, no_rub. ABDOMEN: normal_BS, soft, no_abd_tenderness, (-)guarding, (-)rebound, no_ organomegaly, no_abd_masses. EXTREMITIES: good pulses in all_extremities, no_swelling\tenderness in the extremities, no_edema. SKIN: warm, dry, good_color, no_rash. MENTAL_STATUS: speech_clear, oriented_X_3, anxious_affect, responds_appropriately to questions. NEURO: Neg Motor or Sensory Deficits on exam, CN 2-12 intact, DTR 2+ symmetric x 4, No cerbellar signs Course - Re-evaluation Re-evalutation: 02/22/19 12:12 Patient stated he felt very strangely and him and his put it together while they are waiting for me to see them. That he likely had mixed up his gabapentin and this is happened before. Patient takes a lot of medications and this usually happens when he double dose of his gabapentin. Rechecking about the lab work and monitor him is fully alert and oriented now doing well seems a little bit anxious and jittery but otherwise well denies any alcohol use or withdrawal. 02/22/19 14:29 Patient has a mild dehydration otherwise he is well. No infections noted. He is doing well he is coming out to the nurses station asking for food and water. I spoke with him about organizing his medications better. - Vital Signs Vital signs: Temp Pulse Resp BP Pulse Ox 98.3 F 93 16 145/113 H 100 02/22/19 10:22 02/22/19 10:34 02/22/19 10:22 02/22/19 10:22 02/22/19 10:22 - Laboratory Result Diagrams: 02/22/19 10:57 02/22/19 10:57 Laboratory results interpreted by me: 02/22/19 02/22/19 02/22/19 10:56 10:57 10:57 RDW 15.0 H Seg Neutrophils % 78.1 H Carbon Dioxide 21 L BUN 26 H Glucose 139 H POC Glucose 130 H Direct Bilirubin 0.5 H Alkaline Phosphatase 165 H Urine Protein Urine Ketones Urine Blood Urine Bilirubin Urine Urobilinogen 02/22/19 13:22 RDW Seg Neutrophils % Carbon Dioxide BUN Glucose POC Glucose Direct Bilirubin Alkaline Phosphatase Urine Protein 30 H Urine Ketones 80 H Urine Blood SMALL H Urine Bilirubin SMALL H Urine Urobilinogen 2.0 H Discharge - Discharge Clinical Impression: Coarse tremors Condition: Good Disposition: HOME, SELF-CARE Instructions: Dystonic Reaction to Medication ([facility]) Additional Instructions: Please see your pharmacist or shop other pharmacist to try to cluster your medications into easily identifiable time slots or packages so that you can take them without mixing them up.
[2019-02-22 13:40] LABS: APPEARANCE,URINE SLIGHTLY-CLOUDY; BILIRUBIN,URINE SMALL (NEGATIVE); COLOR,URINE AMBER; GLUCOSE, URINE NEGATIVE (NEGATIVE); KETONES,URINE 80 mg/dL (NEGATIVE); LEUKOCYTE ESTERASE,URINE NEGATIVE (NEGATIVE); NITRITE,URINE NEGATIVE (NEGATIVE); PROTEIN,URINE 30 mg/dL (NEGATIVE); URINE SPECIFIC GRAVITY 1.032
[2019-02-22 13:54] LABS: URINE AMPHETAMINES SCREEN NEGATIVE; URINE BARBITURATES SCREEN NEGATIVE; URINE BENZODIAZEPINES SCREEN NEGATIVE; URINE COCAINE SCREEN NEGATIVE; URINE METHADONE SCREEN NEGATIVE; URINE PHENCYCLIDINE SCREEN NEGATIVE
[2019-02-22 14:01] LABS: URINE MARIJUANA (THC) SCREEN NEGATIVE
[2019-02-22 15:07] VITALS: BP 150/89
--- NOTE | 2019-02-22 16:23 | EKG REPORT ---
SEVERITY:- ABNORMAL ECG - SINUS RHYTHM LEFT ATRIAL ABNORMALITY LEFT ANTERIOR FASCICULAR BLOCK : Confirmed by: Delio Akbar MD 22-Feb-2019 16:21:54
== END 2019-02-22 15:07 | disposition home or self-care (01) ==
LOC: ER 10:17
DX: G25.2 Other specified forms of tremor (principal); R19.7 Diarrhea, unspecified; R11.0 Nausea; I10 Essential (primary) hypertension; E03.9 Hypothyroidism, unspecified; Z88.0 Allergy status to penicillin; Z98.1 Arthrodesis status
CPT/HCPCS: 36415; 70450; 80053; 80307; 81001; 82553; 82962; 84484; 85025; 93005; 93010; 99284

== ENCOUNTER → 2020-01-23 | Outpatient (CLI) | payer MEDICAID, MEDICARE ==
--- NOTE | 2020-01-23 16:06 | ER RDC ASSESSMENT REPORT ---
Intake - In the Last 14 days Have you traveled outside [place]?: No Have you been in close contact with someone CONFIRMED: No Worked in Healthcare?: No - Symptoms Subjective Fever([place] feverish): Yes Chills: Yes Muscule Aches: Yes Runny Nose: Yes Sore Throat: Yes Cough (New or worsening chronic cough): Yes Shortness of breath: Yes Nausea or Vomiting: Yes Headache: Yes Abdominal Pain: No Diarrhea(3 or more loose stools in last 24 hours): No - Do you have any of the following Chronic lung disease: Asthma or emphysema or COPD: Yes Chronic Lung Disease Comment: copd Cystic Fibrosis: No Diabetes: No High Blood Pressure: No Cardiovascular Disease: No Chronic Kidney Disease: No Chronic Liver Disease: No Chronic blood disorder like Sickle Cell Disease: No Weak immune system due to disease or medication: No Neurologic condition that limits movement: No Developmental delay - Moderate to Severe: No Recent (within past 2 weeks) or current : No - Objective Temperature: 97.6 F Pulse Rate: 85 Respiratory Rate: 18 Blood Pressure: 116/88 O2 Sat by Pulse Oximetry: 96 Objective: Given above, testing performed: If Testing Performed: Test Specimen Type Sent to General - General Information source: Patient - HPI Associated symptoms: Body/muscle aches, Chest pain, Chills, Nonproductive cough, Fever, Headache, Nausea, Shortness of breath Exacerbated by: Denies Relieved by: Denies - Related Data Allergies/Adverse Reactions: Penicillins Allergy (Unknown, Verified 02/22/19 10:18) Past Medical History - General Information source: Patient - Social History Smoking Status: Current Every Day Smoker Lives with: Family Family History: COPD - Past Medical History Cardiac Medical History: Reports: Hx Hypertension Pulmonary Medical History: Reports: Hx COPD, Hx Pneumonia Denies: Hx Tuberculosis Endocrine Medical History: Reports: Hx Hypothyroidism Renal/ Medical History: Denies: Hx Peritoneal Dialysis Musculoskeletal Medical History: Reports Hx Arthritis Psychiatric Medical History: Reports: Hx Attention Deficit Hyperactivity Disorder, Hx Bipolar Disorder Denies: Hx Depression Past Surgical History: Reports: Hx Orthopedic Surgery - spinal fusion at lower lumbar area Physical Exam - General General appearance: Appears well, Alert In distress: None - HEENT Head: Normocephalic, Atraumatic Eyes: Normal Conjunctiva: Normal Nasal: Normal Mouth/Lips: Normal Mucous membranes: Normal Pharynx: Normal. No: Erythema, Exudate, Peritonsillar abscess, Tonsillar hypertrophy Neck: Normal, Supple. No: Lymphadenopathy - Respiratory Respiratory status: No respiratory distress Chest status: Nontender Breath sounds: Nonproductive cough, Wheezing - scattered Chest palpation: Normal - Cardiovascular Rhythm: Regular Heart sounds: S1 appreciated, S2 appreciated Murmur: No - Back Back: Tender - Right trapezius muscle tenderness with spasm. No: Vertebra tenderness - Extremities General upper extremity: Normal inspection General lower extremity: Normal inspection - Neurological Neuro grossly intact: Yes Cognition: Normal Juanito Coma Scale Eye Opening: Spontaneous Juanito Coma Scale Verbal: Oriented Juanito Coma Scale Motor: Obeys Commands Juanito Coma Scale Total: 15 - Psychological Associated symptoms: Normal affect, Normal mood - Skin Skin Temperature: Warm Skin Moisture: Dry Skin Color: Normal Diagnostic Results Laboratory Results: The patient was evaluated during the global Covid 19 pandemic, and that diagnosis was suspected/considered upon their initial presentation. Their evaluation, treatment and testing was consistent with current guidelines for patients who present with complaints or symptoms that may be related to Covid 19. Patient presents with upper respiratory symptoms worrisome for possible Covid 19. Patient does not have emergency worrying symptoms such as difficulty breathing, chest pain, pressure, confusion or cyanosis. Patient appears suitable for discharge as patient's vital signs are stable and patient is nontoxic in appearance. Good return precautions have been discussed with patient, patient verbalized understanding and is agreeable with discharge plan of care at this time. Patient Education/Counseling Counseling/Education: Patient was provided with discharge information including: As a person under investigation for Covid 19, the [place] department of Health and Human Services, division of public health advises you to adhere to the following guidance until your test results are reported to you. If your test result is positive, you will receive additional information from your provider and your local health department at that time. Remain at home until you are cleared by the health provider or public health a uthorities. Keep a log of visitors to your home, notify any visitors to your home of your isolation status. If you plan to move to a new address or leave the county, notify the local health department in your County. Call your doctor or seek care if you have an urgent medical need. Before seeking medical care, call ahead to get instructions from the provider before arriving at the medical office clinic or hospital. Notify them that you are being tested for the virus that causes Covid 19 so that arrangements can be made, as necessary, to prevent transmission to others in the healthcare setting. Next, notify the local health department in your county. If a medical emergency arises and you need to call 911, inform the first responders that you are being tested for the virus that causes Covid 19. Next, notify the local health department in your county. RDC Discharge - Discharge Clinical Impression: covid 19 screening Upper respiratory infection Qualifiers: URI type: unspecified URI Qualified Code(s): J06.9 - Acute upper respiratory infection, unspecified Condition: Stable Disposition: Home; Selfcare
[2020-01-23 16:31] VITALS: BP 116/88
[2020-01-23 16:49] LABS: A TYPE INFLUENZA AG NEGATIVE (NEGATIVE); B INFLUENZA AG NEGATIVE (NEGATIVE)
== END ==
LOC: RDC 15:54
PROVIDERS: ATTEND Nurse Practitioner Family
DX: J06.9 Acute upper respiratory infection, unspecified (principal); Z20.828 Contact with and (suspected) exposure to other viral communicable diseases; R05 Cough; R50.9 Fever, unspecified; R06.02 Shortness of breath; R07.9 Chest pain, unspecified; J02.9 Acute pharyngitis, unspecified; R11.0 Nausea; J44.9 Chronic obstructive pulmonary disease, unspecified; I10 Essential (primary) hypertension; R51 Headache; R09.89 Other specified symptoms and signs involving the circulatory and respiratory systems; E03.9 Hypothyroidism, unspecified; M62.830 Muscle spasm of back; F17.200 Nicotine dependence, unspecified, uncomplicated; Z88.0 Allergy status to penicillin
CPT/HCPCS: 87070; 87880; 87077; 87804; U0003; G0463; 87635; 99211

== ENCOUNTER 2020-04-02 01:37 | Inpatient (IN) | payer MEDICARE ==
[2020-04-02] MEDS ORDERED: NORMAL SALINE 500 ML IV ONE (01:45)
[2020-04-02 02:25] LABS: ABSOLUTE LYMPHOCYTES (AUTO) 1.3 10^3/uL (0.5-4.7); ABSOLUTE MONOCYTES (AUTO) 0.7 10^3/uL (0.1-1.4); ABSOLUTE NEUT (AUTO) 7.9 10^3/uL (1.7-8.2); BASOPHILS % (AUTO) 0.3 % (0-2); EOSINOPHILS % (AUTO) 0.1 % (0-6); HEMATOCRIT 43.3 % (37.9-51.0); HEMOGLOBIN 15.1 g/dL (13.5-17.0); LYMPHOCYTES % (AUTO) 13.2 % (13-45); MEAN CORPUSCULAR HEMOGLOBIN 32.2 pg (27.0-33.4); MEAN CORPUSCULAR VOLUME 92 fl (80-97); MONOCYTES % (AUTO) 7.3 % (3-13); PLATELET COUNT 285 10^3/uL (150-450); RED CELL DISTRIBUTION WIDTH 14.1 % (11.5-14.0); SEGMENTED NEUTROPHILS % (AUTO) 79.1 % (42-78); TOTAL CELLS COUNTED % (AUTO) 100 %; WHITE BLOOD COUNT 10.1 10^3/uL (4.0-10.5)
[2020-04-02 02:37] LABS: ALBUMIN 4.6 g/dL (3.5-5.0); ALKALINE PHOSPHATASE 162 U/L (38-126); ANION GAP 11 (5-19); ASPARTATE AMINO TRANSFERASE 44 U/L (17-59); BILIRUBIN,DIRECT 0.1 mg/dL (0.0-0.4); BLOOD UREA NITROGEN 27 mg/dL (7-20); CALCIUM 9.9 mg/dL (8.4-10.2); CARBON DIOXIDE 21 mmol/L (22-30); CHLORIDE 106 mmol/L (98-107); GLUCOSE 128 mg/dL (75-110); TOTAL PROTEIN 7.9 g/dL (6.3-8.2)
--- NOTE | 2020-04-02 02:37 | ER Document Report ---
ED General - General Chief Complaint: Abdominal Pain Stated Complaint: GENERAL WEAKNESS/BEHAVIORAL Time Seen by Provider: 04/02/20 02:33 Primary Care Provider: ANGELA BROOKS PA-C [NO LOCAL MD] - Follow up as needed Mode of Arrival: Medic Information source: Patient, Emergency Med Personnel TRAVEL OUTSIDE OF THE [place] IN LAST 30 DAYS: No - HPI Onset: Other - 12-24 hours ago Onset/Duration: Gradual Quality of pain: Achy - in abdomen Severity: Severe Pain Level: 1 Associated symptoms: Other - confusion Exacerbated by: Denies Relieved by: Denies Similar symptoms previously: No Recently seen / treated by doctor: No Notes: 64 year old male with a history of Alcohol Abuse, COPD, HTN, Hypothyroidism, Arthritis, Bipolar, ADHD sent to the ER for altered mental status. According to the patient's who nursing spoke to, the patient was fine up until Monday morning. The patient apparently was cutting his grass in the heat Monday drinking beer and on Monday the patient was confused and moaning and acting strange. The patient's sent the patient to the ER via EMS for further evaluation. The patient complained to nursing initially of some abdominal pain but when I saw him, he had no complaints but was very disoriented (he only knew his name). When asked if he has abdominal pains he told me no. I pushed on his abdomen and he seemed to have no actual pain but later I pushed on his abdomen and he said it hurt some. - Related Data Allergies/Adverse Reactions: Penicillins Allergy (Unknown, Verified 04/02/20 02:17) Past Medical History - General Information source: Patient, Emergency Med Personnel - Social History Smoking Status: Current Every Day Smoker Frequency of alcohol use: Heavy Drug Abuse: None Lives with: Spouse/Significant other Family History: Reviewed & Not Pertinent, COPD - Past Medical History Cardiac Medical History: Reports: Hx Hypertension Pulmonary Medical History: Reports: Hx COPD, Hx Pneumonia Denies: Hx Tuberculosis Endocrine Medical History: Reports: Hx Hypothyroidism Renal/ Medical History: Denies: Hx Peritoneal Dialysis Musculoskeletal Medical History: Reports Hx Arthritis Psychiatric Medical History: Reports: Hx Attention Deficit Hyperactivity Disorder, Hx Bipolar Disorder Denies: Hx Depression Past Surgical History: Reports: Hx Orthopedic Surgery - spinal fusion at lower lumbar area - Immunizations Hx Diphtheria, Pertussis, Tetanus Vaccination: Yes Review of Systems - Review of Systems Constitutional: No symptoms reported EENT: No symptoms reported Cardiovascular: No symptoms reported Respiratory: No symptoms reported Gastrointestinal: Abdominal pain Genitourinary: No symptoms reported Male Genitourinary: No symptoms reported Musculoskeletal: No symptoms reported Skin: No symptoms reported Hematologic/Lymphatic: No symptoms reported Neurological/Psychological: Confusion -: Yes All other systems reviewed and negative Physical Exam - Vital signs Vitals: Temp 98.6 F 04/02/20 01:38 - Notes Notes: GENERAL: Poorly groomed, well-nourished, in mild distress HEAD: Atraumatic, normocephalic. EYES: Pupils equal round and reactive to light, extraocular movements intact, sclera anicteric, conjunctiva are normal. ENT: External ears normal, nares patent, oropharynx clear without exudates. Moist mucous membranes. NECK: Normal range of motion, supple without lymphadenopathy or JVD. LUNGS: Breath sounds clear to auscultation bilaterally and equal. No wheezes rales or rhonchi. HEART: Regular rate and rhythm without murmurs, rubs or gallops. ABDOMEN: Soft, nontender, normoactive bowel sounds. No guarding, no rebound. No masses appreciated. EXTREMITIES: Normal range of motion, no pitting or edema. No clubbing or cyanosis. NEUROLOGICAL: Patient not oriented to place, time or situation but he is oriented to person. Patient's speech pressured and only somewhat coherent at times. Normal gait. PSYCH: Animated and possibly hallucinating. Patient denies SI or HI. SKIN: Warm, Dry, normal turgor, no rashes or lesions noted. Course - Re-evaluation Re-evalutation: 04/02/20 05:14 The patient was brought to the ER for confusion and acting bizzar. The patient was last seen normal by his on Monday while he was cutting his grass in the heat while drinking beer. The patient is certainly somewhat confused in the ER. CT of his head shows no acute process although there was some potion art ifact. Blood work was unremarkable. UA shows patient is likely dehydrated. Patient is fairly agitated and will get out of his ER bed and walk around from time to time. It also seems the patient may be hallucinating some. Patient treated with IM Geodon in the ER to help with his agitation but also so that nursing could have him IV Fluids. Plan will be for the patient to be reassessed after IV hydration and once the Geodon wears off. The patient should be evaluated by psych since he has a psych history and is on several psych medications. It is not clear what medications the patient is on so he may have missed some doses or taken too many. The patient could be confused from heat exhaustion and dehydration but there is likely a psychiatric component to his confusion today as well. - Vital Signs Vital signs: Temp Pulse Resp BP Pulse Ox 98.6 F 88 15 160/80 H 95 04/02/20 01:45 04/02/20 01:45 04/02/20 04:00 04/02/20 03:51 04/02/20 04:00 - Laboratory Result Diagrams: 04/02/20 02:12 04/02/20 02:12 Laboratory results interpreted by me: 04/02/20 04/02/20 04/02/20 02:12 02:12 02:12 RDW 14.1 H Seg Neutrophils % 79.1 H Carbon Dioxide 21 L BUN 27 H Glucose 128 H Alkaline Phosphatase 162 H Ammonia Urine Protein Urine Glucose (UA) Urine Ketones Urine Blood Salicylates < 1.0 L Acetaminophen < 10 L 04/02/20 04/02/20 02:57 04:22 RDW Seg Neutrophils % Carbon Dioxide BUN Glucose Alkaline Phosphatase Ammonia < 8.7 L Urine Protein 30 H Urine Glucose (UA) 150 H Urine Ketones 80 H Urine Blood MODERATE H Salicylates Acetaminophen - Diagnostic Test Radiology reviewed: Image reviewed, Reports reviewed - EKG Interpretation by Me EKG shows normal: Sinus rhythm, Intervals, QRS Complexes, ST-T Waves Rate: Normal Rhythm: NSR [place]/QRS: Left axis deviation Discharge - Discharge Clinical Impression: Altered mental status Qualifiers: Altered mental status type: unspecified Qualified Code(s): R41.82 - Altered mental status, unspecified Condition: Stable Disposition: OTHER Referrals: ANGELA BROOKS PA-C [NO LOCAL MD] - Follow up as needed
[2020-04-02 03:13] LABS: ACETAMINOPHEN < 10 ug/mL (10-30); SALICYLATE < 1.0 mg/dL (2.0-20.0)
--- NOTE | 2020-04-02 03:55 | RADIOLOGY REPORT (SQ) ---
EXAM DESCRIPTION: CT HEAD WITHOUT IV CONTRAST COMPLETED DATE/TME: 04/02/2020 02:43 CLINICAL HISTORY: 64 years, Male, eval for cause of altered mental status COMPARISON: 02/22/2019 CT TECHNIQUE: 215 Images stored on PACS. All CT scanners at this facility use dose modulation, iterative reconstruction, and/or weight based dosing when appropriate to reduce radiation dose to as low as reasonably achievable (ALARA). [facility]: Dose Right [facility]: CareDose [facility]: Dose Right [facility]: Teradose 4D [facility]: [employer] LIMITATIONS: None. FINDINGS: Motion artifact significantly limits the exam. The globes appear intact. The paranasal sinuses and mastoid air cells are grossly unremarkable. No displaced or depressed skull fracture. No intra or extra-axial hemorrhage. CT is limited for evaluation of acute infarct. No CT evidence for large or territorial acute infarct. No mass. No midline shift IMPRESSION: Motion artifact. Otherwise, unremarkable unenhanced CT brain TECHNICAL DOCUMENTATION: Quality ID # 436: Final reports with documentation of one or more dose reduction techniques (e.g., Automated exposure control, adjustment of the mA and/or kV according to patient size, use of iterative reconstruction technique) copyright 2010 [employer]- All Rights Reserved
[2020-04-02 04:42] LABS: APPEARANCE,URINE SLIGHTLY-CLOUDY; BILIRUBIN,URINE NEGATIVE (NEGATIVE); COLOR,URINE AMBER; GLUCOSE, URINE 150 mg/dL (NEGATIVE); KETONES,URINE 80 mg/dL (NEGATIVE); LEUKOCYTE ESTERASE,URINE NEGATIVE (NEGATIVE); NITRITE,URINE NEGATIVE (NEGATIVE); PROTEIN,URINE 30 mg/dL (NEGATIVE); URINE SPECIFIC GRAVITY 1.035; UROBILINOGEN,URINE NEGATIVE mg/dL (<2.0)
[2020-04-02] MEDS ORDERED: ZIPRASIDONE MESYLATE INJ/PF 20 MG SDV IM ONE ×2 (04:54→11:37)
[2020-04-02] MEDS ORDERED: NORMAL SALINE 1000 ML 1,000 ML IV ONE ×2 (04:54)
[2020-04-02 04:57] LABS: URINE AMPHETAMINES SCREEN NEGATIVE; URINE BARBITURATES SCREEN NEGATIVE; URINE BENZODIAZEPINES SCREEN NEGATIVE; URINE COCAINE SCREEN NEGATIVE; URINE MARIJUANA (THC) SCREEN UNCONFIRMED POSITIVE; URINE METHADONE SCREEN NEGATIVE; URINE PHENCYCLIDINE SCREEN NEGATIVE
[2020-04-02] MEDS ORDERED: RINGERS SOLUTION,LACTATED 1,000 ML IV ONE ×2 (08:04→17:30)
[2020-04-02] MEDS ORDERED: THIAMINE HCL INJ 200 MG/2 ML VIAL IV ONE (08:51)
[2020-04-02] MEDS ORDERED: MORPHINE SULFATE 10 MG/ML INJ IV ONE ×2 (08:52→17:45)
--- NOTE | 2020-04-02 10:00 | EKG REPORT ---
SEVERITY:- BORDERLINE ECG - SINUS RHYTHM PROBABLE LEFT ATRIAL ABNORMALITY LEFT AXIS DEVIATION : Confirmed by: Maci Treviño 02-Apr-2020 09:59:02
--- NOTE | 2020-04-02 11:48 | ER Document Report ---
Doctor's Note Notes: 04/02/20 11:44 I assume patient care about 6:20 AM this morning. Went to see the patient with Dr. Grijalva. At that time the patient was arousable, reasonably oriented and conversant. He had received Geodon 10mg IM about 1 hour earlier because of his bizarre psychiatric behavior. I did order additional IV fluids due to the history of him being outdoors in the heat and lawn mowing and drinking beer the day before his presentation. I added a CK to his original lab work which came back elevated at 933, the urine had a specific gravity 1.035 with ketones greater than 80. All this was suggestive of dehydration and heat injury, probably exacerbating his underlying psychiatric disorder. About 8:45 AM, I tried to engage the patient and he was confused, trying to crawl out of the bed, and almost acting encephalopathic. I did notice that he normally takes Percocet 5 mg 4 times daily, he had been tapered from 7.5 4 times daily a month earlier. He did not have any narcotic medicine in a while, so I gave him a small dose of morphine. He did go to sleep and is sensory did seem to clear up some. By 11:30 AM, he is again disoriented, climbing out of the bed, and difficult to carry on a conversation. I will give him an additional Geodon 10 mg IM and see if that makes it easier for the psychiatric evaluation by the behavioral health person.
[2020-04-02 15:54] LABS: ABSOLUTE LYMPHOCYTES (AUTO) 2.4 10^3/uL (0.5-4.7); ABSOLUTE MONOCYTES (AUTO) 0.8 10^3/uL (0.1-1.4); ABSOLUTE NEUT (AUTO) 6.7 10^3/uL (1.7-8.2); BASOPHILS % (AUTO) 0.3 % (0-2); EOSINOPHILS % (AUTO) 0.3 % (0-6); HEMATOCRIT 43.2 % (37.9-51.0); HEMOGLOBIN 14.4 g/dL (13.5-17.0); LYMPHOCYTES % (AUTO) 24.2 % (13-45); MEAN CORPUSCULAR HEMOGLOBIN 31.5 pg (27.0-33.4); MEAN CORPUSCULAR HGB CONC 33.4 g/dL (32.0-36.0); MEAN CORPUSCULAR VOLUME 94 fl (80-97); MONOCYTES % (AUTO) 7.8 % (3-13); PLATELET COUNT 253 10^3/uL (150-450); RED BLOOD COUNT 4.58 10^6/uL (4.35-5.55); RED CELL DISTRIBUTION WIDTH 13.6 % (11.5-14.0); SEGMENTED NEUTROPHILS % (AUTO) 67.4 % (42-78); TOTAL CELLS COUNTED % (AUTO) 100 %
[2020-04-02 16:17] LABS: ALKALINE PHOSPHATASE 136 U/L (38-126); ANION GAP 7 (5-19); ASPARTATE AMINO TRANSFERASE 85 U/L (17-59); BILIRUBIN,TOTAL 0.7 mg/dL (0.2-1.3); BLOOD UREA NITROGEN 23 mg/dL (7-20); CARBON DIOXIDE 23 mmol/L (22-30); CHLORIDE 109 mmol/L (98-107); GLUCOSE 100 mg/dL (75-110); POTASSIUM 3.9 mmol/L (3.6-5.0); TOTAL PROTEIN 7.3 g/dL (6.3-8.2)
[2020-04-02 16:26] LABS: CREATINE KINASE 2425 U/L (55-170)
[2020-04-02] MEDS ORDERED: ONDANSETRON HCL INJ/PF 4 MG/2 ML SDV IV ONE (17:45)
--- NOTE | 2020-04-02 18:01 | ER Document Report ---
Doctor's Note Notes: 04/02/20 17:49 MDM 64 year old male arrives with altered mental status for the last day or so after cutting the grass in the heat. He lives at home with his and has a rather extensive history with htn, copd, chronic pain, adhd, etoh use. Denies Fever or recent illness. He is difficult to talk with and history is limited. Confused at baseline. Seems encephalopathic here and clearly a bit dry with Ck increasing from 900's to 2500 after 3 liters of fluid. Psych is following along. With a degree of clear metabolic involvement I have involved the hopsitalist service and Dr. Molina has agreed to see and evaluate the pt for addmission.
--- NOTE | 2020-04-02 18:21 | RADIOLOGY REPORT (SQ) ---
EXAM DESCRIPTION: CHEST SINGLE VIEW IMAGES COMPLETED DATE/TIME: 04/02/2020 4:55 pm REASON FOR STUDY: htn . COMPARISON: 11/29/2017 EXAM PARAMETERS: NUMBER OF VIEWS: One view. TECHNIQUE: Single frontal radiographic view of the chest acquired. RADIATION DOSE: NA LIMITATIONS: None. FINDINGS: LUNGS AND PLEURA: No opacities, masses or pneumothorax. No pleural effusion. MEDIASTINUM AND HILAR STRUCTURES: No masses. Contour normal. HEART AND VASCULAR STRUCTURES: Heart normal in size. Normal vasculature. BONES: No acute findings. HARDWARE: None in the chest. OTHER: No other significant finding. IMPRESSION: NO ACUTE RADIOGRAPHIC FINDING IN THE CHEST. TECHNICAL DOCUMENTATION: JOB ID: [id number] 2010 [employer]- All Rights Reserved Reading location - IP/workstation name: [id number]
[2020-04-02] MEDS ORDERED: ZIPRASIDONE MESYLATE INJ/PF 20 MG SDV IM PRN (18:32)
--- NOTE | 2020-04-02 18:56 | PDOC H&P ---
History of Present Illness History of Present Illness: JUANITA YAN is a 64 year old male with a history of alcohol and substance abuse (at least in the past), as well as bipolar disorder and is on multiple psychoactive drugs at home, who presents with encephalopathy. Apparently for the past couple of days at home his told EMS and the ER providers that he has "not been acting right." Apparently at one point he was found by his s leeping in their hallway at home. He has been missing doses of his medications. Apparently he was fine up until Monday. His told the ER that on Monday he was outside cutting the grass and drinking beer while he was doing so. He was been complaining intermittently of abdominal pain but whenever I examined his belly I got no pain response out of him whatsoever. In fact, after I got done examining his abdomen, he said it felt better. He has been intermittently encephalopathic throughout the day because he came to the ER very early in the morning. He is gotten intermittent doses of Geodon and morphine. I was told that by the time I saw him it was the most coherent he had been all day. I witnessed him once earlier in the day when I was down in the ER seeing someone else, and he was trying to get up out of the bed and could not stand up steadily and a nurse rushed into the room and got him back into the bed. He cannot explain to me why he feels the way he does now. He denies drinking too much alcohol or taking any drugs or eating any bad food. Initially when he came in they check some labs on him and his labs all look pretty good with the exception of his CPK. Initially it was around 900 and when it was checked again later on today it was up to over 2400, despite him having about 4 L of IV fluids at that point. Apparently his blood pressures were a little bit low but now his systolic is in the 130s. Head CT was not a good quality study because he would not lay still while they were getting the images. His toxicological screen show some marijuana but nothing other than that. He was supposed to be on Percocet at home but he does not have any opiates in his system. 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 The specific etiology of his condition is not very clear, but he does seem improved compared to his initial p resentation. He is being admitted for some more IV fluids for mild rhabdomyolysis and observation. Past Medical History Cardiac Medical History: Reports: Hypertension Pulmonary Medical History: Reports: Chronic Obstructive Pulmonary Disease (COPD), Pneumonia Denies: Tuberculosis Endocrine Medical History: Reports: Hypothyroidism Musculoskeltal Medical History: Reports: Arthritis Psychiatric Medical History: Reports: Attention Deficit Hyperactivity Disorder, Bipolar Disorder Denies: Depression Past Surgical History Past Surgical History: Reports: Orthopedic Surgery - spinal fusion at lower lumbar area Social History Lives with: Spouse/Significant other Smoking Status: Current Every Day Smoker Frequency of Alcohol Use: None Hx Recreational Drug Use: Yes Drugs: Cocaine, Other Hx Prescription Drug Abuse: No Family History Family History: Reviewed & Not Pertinent, COPD Parental Family History Reviewed: No - Unable to obtain Children Family History Reviewed: No - Unable to obtain Sibling(s) Family History Reviewed.: No - Unable to obtain Medication/Allergy Home Medications: Cyclobenzaprine HCl [Flexeril 10 mg Tablet] 10 mg PO Q8HP PRN 04/02/20 Duloxetine HCl 60 mg PO Q12 04/02/20 Gabapentin 800 mg PO QID 04/02/20 Mirtazapine 45 mg PO QHS 04/02/20 Oxycodone HCl/Acetaminophen [Percocet 5-325 mg Tablet] 1 tab PO Q6HP PRN 04/02/20 Prazosin HCl 2 mg PO QHS 04/02/20 Quetiapine Fumarate 200 mg PO BID 04/02/20 Quetiapine Fumarate 400 mg PO QHS 04/02/20 Allergies/Adverse Reactions: Penicillins Allergy (Unknown, Verified 04/02/20 02:17) Review of Systems ROS unobtainable: Due to mental status Physical Exam Vital Signs: Temp Pulse Resp BP Pulse Ox 97.9 F 88 15 175/94 H 96 04/02/20 11:30 04/02/20 01:45 04/02/20 14:00 04/02/20 11:15 04/02/20 14:00 Intake & Output 04/01/20 04/02/20 04/03/20 06:59 06:59 06:59 Intake Total 1500 2000 Balance 1500 2000 Weight 90.718 kg General appearance: PRESENT: cooperative - Does not withdraw or push me away but cannot really follow commands, disheveled, mild distress - Sort of writhing about in the bed intermittently Head exam: PRESENT: atraumatic, normocephalic Eye exam: PRESENT: EOMI, PERRLA. ABSENT: conjunctival injection, nystagmus, scleral icterus Ear exam: PRESENT: normal external ear exam Mouth exam: PRESENT: dry mucosa, neck supple Teeth exam: PRESENT: poor dentation Neck exam: PRESENT: full ROM - I could not get him to follow specific commands, but he was moving his head from side to side and up and down without any difficulty. ABSENT: carotid bruit, JVD, lymphadenopathy, meningismus, tenderness, thyromegaly Respiratory exam: PRESENT: clear to auscultation aliya, symmetrical, unlabored. ABSENT: accessory muscle use, chest wall tenderness, crackles, prolonged expiratory phas, rhonchi, tachypnea, wheezes Cardiovascular exam: PRESENT: RRR, +S1, +S2 Pulses: PRESENT: normal carotid pulses Vascular exam: PRESENT: normal capillary refill GI/Abdominal exam: PRESENT: normal bowel sounds, soft. ABSENT: guarding, rebound, tenderness - He claims to have some tenderness but I could not elicit any tenderness on examination Extremities exam: ABSENT: clubbing, pedal edema Musculoskeletal exam: PRESENT: normal inspection. ABSENT: deformity Neurological exam: PRESENT: awake, oriented to person, other - I could not get a good cranial nerve exam because he could not follow specific commands but he did not appear to have any focal or lateralizing deficits on observation. ABSENT: oriented to situation Psychiatric exam: PRESENT: agitated - Mild Skin exam: PRESENT: dry, warm Results Laboratory Results: 04/02/20 15:39 04/02/20 15:39 04/02/20 04/02/20 04/02/20 02:12 02:12 02:12 WBC 10.1 RBC 4.70 Hgb 15.1 Hct 43.3 MCV 92 MCH 32.2 MCHC 35.0 RDW 14.1 H Plt Count 285 Seg Neutrophils % 79.1 H Sodium 137.6 Potassium 4.0 Chloride 106 Carbon Dioxide 21 L Anion Gap 11 BUN 27 H Creatinine 1.00 Est GFR ( Amer) > 60 Glucose 128 H Lactic Acid 1.7 Calcium 9.9 Total Bilirubin 1.0 AST 44 Alkaline Phosphatase 162 H Ammonia Total Protein 7.9 Albumin 4.6 Lipase 50.1 TSH Urine Color Urine Appearance Urine pH Ur Specific [place] Urine Protein Urine Glucose (UA) Urine Ketones Urine Blood Urine Nitrite Ur Leukocyte Esterase Urine WBC (Auto) Urine RBC (Auto) 04/02/20 04/02/20 04/02/20 02:12 02:57 04:22 WBC RBC Hgb Hct MCV MCH MCHC RDW Plt Count Seg Neutrophils % Sodium Potassium Chloride Carbon Dioxide Anion Gap BUN Creatinine Est GFR ( Amer) Glucose Lactic Acid Calcium Total Bilirubin AST Alkaline Phosphatase Ammonia < 8.7 L Total Protein Albumin Lipase TSH 0.85 Urine Color [place] Urine Appearance SLIGHTLY-CLOUDY Urine pH 5.0 Ur Specific [place] 1.035 Urine Protein 30 H Urine Glucose (UA) 150 H Urine Ketones 80 H Urine Blood MODERATE H Urine Nitrite NEGATIVE Ur Leukocyte Esterase NEGATIVE Urine WBC (Auto) 1 Urine RBC (Auto) 1 04/02/20 04/02/20 15:39 15:39 WBC 10.0 RBC 4.58 Hgb 14.4 Hct 43.2 MCV 94 MCH 31.5 MCHC 33.4 RDW 13.6 Plt Count 253 Seg Neutrophils % 67.4 Sodium 138.5 Potassium 3.9 Chloride 109 H Carbon Dioxide 23 Anion Gap 7 BUN 23 H Creatinine 0.95 Est GFR ( Amer) > 60 Glucose 100 Lactic Acid Calcium 9.0 Total Bilirubin 0.7 AST 85 H Alkaline Phosphatase 136 H Ammonia Total Protein 7.3 Albumin 4.0 Lipase TSH Urine Color Urine Appearance Urine pH Ur Specific [place] Urine Protein Urine Glucose (UA) Urine Ketones Urine Blood Urine Nitrite Ur Leukocyte Esterase Urine WBC (Auto) Urine RBC (Auto) 04/02/20 04/02/20 04/02/20 02:12 15:39 15:39 Creatine Kinase 933 H 2425 H Troponin I < 0.012 Impressions: Head CT 04/02/20 02:43 IMPRESSION: Motion artifact. Otherwise, unremarkable unenhanced CT brain TECHNICAL DOCUMENTATION: Quality ID # 436: Final reports with documentation of one or more dose reduction techniques (e.g., Automated exposure control, adjustment of the mA and/or kV according to patient size, use of iterative reconstruction technique) copyright 2011 [employer]- All Rights Reserved Chest X-Ray 04/02/20 17:29 IMPRESSION: NO ACUTE RADIOGRAPHIC FINDING IN THE CHEST. Assessment and Plan - Diagnosis (1) Encephalopathy acute Is this a current diagnosis for this admission?: Yes Plan: At this time the etiology of his encephalopathy is unknown. Based on the sequence of events that we know of, it is possible that he had something metabolic occur as a result of him cutting grass being outside on a very hot day while simultaneously drinking beer which would diurese him and caused him to be dehydrated. He seems to have had worsening encephalopathy since this point. We do not have evidence of any toxic ingestion that would have caused this. He is on multiple mood altering medications but his said he is not been taking these consistently the last couple of days. He does not really present like a withdrawal from alcohol or opiates. As soon as he is able to calm down some more we will try to repeat some imaging of his brain, ideally an MRI but he would not lay still long enough for a CT scan at this point so we will just have to reassess him after some time. (2) Alcohol abuse Is this a current diagnosis for this admission?: Yes Plan: Will monitor closely for any signs of withdrawal. We will give him a banana bag with vitamins and thiamine. (3) Polypharmacy Is this a current diagnosis for this admission?: Yes Plan: Medications are being held right now in case he has had an accumulation of substances causing a combined toxic effect. RADHAMES Phillips. (4) Dehydration Is this a current diagnosis for this admission?: Yes Plan: IV fluids, monitoring electrolytes and urine output (5) Rhabdomyolysis Qualifiers: Rhabdomyolysis type: non-traumatic Qualified Code(s): M62.82 - Rhabdo myolysis Is this a current diagnosis for this admission?: Yes Plan: Very mild. CPK did go up despite fairly aggressive fluid resuscitation. We will monitor his urine output and follow the trend in his CPK. (6) Tobacco dependence Is this a current diagnosis for this admission?: Yes Plan: Once his mental status improves will children's counselor him regarding importance of smoking cessation - Time Time Spent with patient: 35 or more minutes
[2020-04-02] MEDS ORDERED: NORMAL SALINE 1000 ML 1,000 ML with POTASSIUM CHLORIDE 20 MEQ, MAGNESIUM SULFATE 8 MEQ,... IV SCH ×5 (22:00)
[2020-04-02] MEDS: RINGERS SOLUTION,LACTATED 1,000 ML IV PRN (22:48)
[2020-04-03] MEDS: LORAZEPAM INJ 2 MG/1 ML VIAL IV PRN ×2 (00:35→20:22)
[2020-04-03 05:25] LABS: HEMOGLOBIN 13.3 g/dL (13.5-17.0); MEAN CORPUSCULAR HEMOGLOBIN 31.7 pg (27.0-33.4); MEAN CORPUSCULAR HGB CONC 34.1 g/dL (32.0-36.0); MEAN CORPUSCULAR VOLUME 93 fl (80-97); PLATELET COUNT 224 10^3/uL (150-450); RED CELL DISTRIBUTION WIDTH 13.7 % (11.5-14.0); WHITE BLOOD COUNT 7.9 10^3/uL (4.0-10.5)
[2020-04-03 05:36] LABS: ANION GAP 7 (5-19); BLOOD UREA NITROGEN 21 mg/dL (7-20); CALCIUM 8.6 mg/dL (8.4-10.2); CARBON DIOXIDE 22 mmol/L (22-30); CHLORIDE 107 mmol/L (98-107); CREATINE KINASE 1348 U/L (55-170); GLUCOSE 100 mg/dL (75-110); POTASSIUM 3.8 mmol/L (3.6-5.0)
[2020-04-03] MEDS: NORMAL SALINE 1000 ML 1,000 ML with POTASSIUM CHLORIDE 20 MEQ, MAGNESIUM SULFATE 8 MEQ,... IV SCH ×5 (09:28)
--- NOTE | 2020-04-03 10:16 | PSYCHOLOGICAL NOTE ---
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 informed medical staff patient had been mowing the yard and drinking beer yesterday so concern for dehydration (CK was elevated at 933 and fluid provided). had told medical staff patient doesn't drink often and doesn't use drugs. ED Physician stated patient is prescribed Oxycodone and it looks as though he is being weened off it, so administered Morphine for concerns patient's initial presentation was due to withdrawal. He was also administered Geodon 10MG Intramuscular at 0511 and then again at 1159 (second time nurse stated patient kept trying to get up out of bed, he was unsteady, not making sense). UDS positive for Cannabis. Head CT dated today had no significant findings and was focused on acute issues (no neurodegenerative language). Patient was sleeping. He woke up easily. This clinician said Good Afternoon. He looked around briefly. When asked if he knew where he was he was quiet for several seconds then said "afternoon." He rolled over to his side in bed, covered up and went back to bed. Attending nurse stated patient could not answer questions and did not make sense in responses. [facility] review via patient's pharmacy revealed a iHginio Bird prescribed all of patient's medications. Psychiatric ones include: Seroquel 200MG three times a day Cymbalta 60MG twice a day (may be for pain management) Gabapentin 800MG four times a day (may be for pain management) Prazosin 2MG at night Mirtazepine 45MG at night Chart review revealed patient was seen by [facility] end March 2017 for suicidal ideation with a plan to hang self, at that time noted history of Bipolar since age 9, it was documented patient suffered cardiac issues from Cocaine abuse the year before (he was positive for cocaine once in 2016), he was held overnight and discharged [facility]. A Head MRI was done 08/11/14 for Progressive Memory Loss which had normal findings and no neurodegenerative language. He has consistently been positive for Cannabis on hospital drug screens. At one point he was prescribed Register because and old drug screen had a Register Level. Clinical Presentation: Altered Mental Status Diagnosis: Bipolar by History Cannabis Use Disorder, Severe Impression/Plan: Patient being admitted for medical: Encephalopathic, Rhabdo (even with fluids CK increased) and Altered Mental Status. Consulted with Dr. Kaur regarding the management and care of patient. ED Physician in agreement with recommendations.
--- NOTE | 2020-04-03 17:55 | PDOC PROGRESS REPORT ---
Subjective Progress Note for:: 04/03/20 Subjective:: No adverse events overnight. He is still sleeping a lot. He still is not able to give me a good history as to why he feels the way he does. He did not eat very much today. Vital signs been stable. No evidence of withdrawal. Reason For Visit: RHABDOMYOLYSIS,ENCEPHELOPATHY Physical Exam Vital Signs: Temp Pulse Resp BP Pulse Ox 97.9 F 68 20 151/79 H 97 04/03/20 15:42 04/03/20 15:42 04/03/20 15:42 04/03/20 15:42 04/03/20 15:42 Intake & Output 04/02/20 04/03/20 04/04/20 06:59 06:59 06:59 Intake Total 1500 3250 0 Output Total 650 Balance 1500 2600 0 Weight 90.718 kg 85.2 kg General appearance: PRESENT: cooperative, disheveled, no apparent distress Respiratory exam: PRESENT: clear to auscultation aliya, symmetrical, unlabored. ABSENT: accessory muscle use, chest wall tenderness, crackles, prolonged expiratory phas, rhonchi, tachypnea, wheezes Cardiovascular exam: PRESENT: RRR, +S1, +S2 Pulses: PRESENT: normal carotid pulses Vascular exam: PRESENT: normal capillary refill GI/Abdominal exam: PRESENT: normal bowel sounds, soft. ABSENT: guarding, rebound, tenderness Extremities exam: ABSENT: clubbing, pedal edema Musculoskeletal exam: PRESENT: normal inspection. ABSENT: deformity Neurological exam: PRESENT: awake, oriented to person. ABSENT: oriented to situation Psychiatric exam: PRESENT: agitated - Mild Skin exam: PRESENT: dry, warm Results Laboratory Results: 04/03/20 05:05 04/03/20 05:05 04/03/20 04/03/20 05:05 05:05 WBC 7.9 RBC 4.20 L Hgb 13.3 L Hct 39.0 MCV 93 MCH 31.7 MCHC 34.1 RDW 13.7 Plt Count 224 Sodium 136.2 L Potassium 3.8 Chloride 107 Carbon Dioxide 22 Anion Gap 7 BUN 21 H Creatinine 0.91 Est GFR ( Amer) > 60 Glucose 100 Calcium 8.6 04/02/20 04/02/20 04/02/20 02:12 15:39 15:39 Creatine Kinase 933 H 2425 H Troponin I < 0.012 04/03/20 05:05 Creatine Kinase 1348 H Troponin I Impressions: Head CT 04/02/20 02:43 IMPRESSION: Motion artifact. Otherwise, unremarkable unenhanced CT brain TECHNICAL DOCUMENTATION: Quality ID # 436: Final reports with documentation of one or more dose reduction techniques (e.g., Automated exposure control, adjustment of the mA and/or kV according to patient size, use of iterative reconstruction technique) copyright 2011 [employer]- All Rights Reserved Chest X-Ray 04/02/20 17:29 IMPRESSION: NO ACUTE RADIOGRAPHIC FINDING IN THE CHEST. Assessment and Plan - Diagnosis (1) Encephalopathy acute Is this a current diagnosis for this admission?: Yes Plan: At this time the etiology of his encephalopathy is unknown. Based on the sequence of events that we know of, it is possible that he had something metabolic occur as a result of him cutting grass being outside on a very hot day while simultaneously drinking beer which would diurese him and caused him to be dehydrated. He seems to have had worsening encephalopathy since this point. We do not have evidence of any toxic ingestion that would have caused this. He is on multiple mood altering medications but his said he is not been taking these consistently the last couple of days. He does not really present like a withdrawal from alcohol or opiates. As soon as he is able to calm down some more we will try to repeat some imaging of his brain, ideally an MRI but he would not lay still long enough for a CT scan at this point so we will just have to reassess him after some time. He at least is stable and does not seem to be deteriorating. (2) Alcohol abuse Is this a current diagnosis for this admission?: Yes Plan: Will monitor closely for any signs of withdrawal. We will give him a banana bag with vitamins and thiamine. (3) Polypharmacy Is this a current diagnosis for this admission?: Yes Plan: Medications are being held right now in case he has had an accumulation of substances causing a combined toxic effect. RADHAMES Phillips. (4) Dehydration Is this a current diagnosis for this admission?: Yes Plan: IV fluids, monitoring electrolytes and urine output (5) Rhabdomyolysis Qualifiers: Rhabdomyolysis type: non-traumatic Qualified Code(s): M62.82 - Rhabdomyolysis Is this a current diagnosis for this admission?: Yes Plan: Very mild. CPK has improved with hydration. (6) Tobacco dependence Is this a current diagnosis for this admission?: Yes Plan: Once his mental status improves will weight loss counselor him regarding importance of smoking cessation - Time Time Spent with patient: 25-34 minutes
[2020-04-03] MEDS: RINGERS SOLUTION,LACTATED 1,000 ML IV PRN (18:11)
[2020-04-04] MEDS: RINGERS SOLUTION,LACTATED 1,000 ML IV PRN ×2 (02:26→20:05)
[2020-04-04 05:02] LABS: HEMOGLOBIN 13.1 g/dL (13.5-17.0); MEAN CORPUSCULAR HEMOGLOBIN 31.9 pg (27.0-33.4); MEAN CORPUSCULAR HGB CONC 34.4 g/dL (32.0-36.0); MEAN CORPUSCULAR VOLUME 93 fl (80-97); PLATELET COUNT 199 10^3/uL (150-450); RED CELL DISTRIBUTION WIDTH 13.4 % (11.5-14.0); WHITE BLOOD COUNT 6.5 10^3/uL (4.0-10.5)
[2020-04-04 05:25] LABS: ANION GAP 6 (5-19); BLOOD UREA NITROGEN 17 mg/dL (7-20); CALCIUM 8.3 mg/dL (8.4-10.2); CARBON DIOXIDE 23 mmol/L (22-30); CHLORIDE 104 mmol/L (98-107); CREATINE KINASE 567 U/L (55-170); GLUCOSE 88 mg/dL (75-110); POTASSIUM 3.6 mmol/L (3.6-5.0)
[2020-04-04] MEDS: NORMAL SALINE 1000 ML 1,000 ML with POTASSIUM CHLORIDE 20 MEQ, MAGNESIUM SULFATE 8 MEQ,... IV SCH ×5 (10:10)
--- NOTE | 2020-04-04 10:31 | PSYCHOLOGICAL NOTE ---
Psych Note - Psych Note Date seen by psych provider: 04/04/20 Time seen by psych provider: 21:30 Psych Note: Reason for Consult: AMS/ possible Substance abuse Patient engages and attempts to answer questions appropriately; however, continues to demonstrate difficulty in organized and linear conversational speech. Patient is able to remember mowing the lawn, but unable to provide any other details. Patient will be seen again tomorrow.
--- NOTE | 2020-04-04 14:34 | PDOC PROGRESS REPORT ---
Subjective Progress Note for:: 04/04/20 Subjective:: No adverse events overnight. No new complaints. He really seems no different from yesterday. He seems to be in a delirium without any sort of focal deficit. He has been eating a little bit intermittently. Reason For Visit: RHABDOMYOLYSIS, METABOLIC ENCEPHELOPATHY Physical Exam Vital Signs: Temp Pulse Resp BP Pulse Ox 97.6 F 61 16 119/73 96 04/04/20 08:04 04/04/20 08:04 04/04/20 08:04 04/04/20 08:04 04/04/20 08:04 Intake & Output 04/03/20 04/04/20 04/05/20 06:59 06:59 06:59 Intake Total 4250 2263 Output Total 650 Balance 3600 2263 Weight 85.2 kg 84.1 kg General appearance: PRESENT: cooperative, disheveled, no apparent distress Respiratory exam: PRESENT: clear to auscultation aliya, symmetrical, unlabored. ABSENT: accessory muscle use, chest wall tenderness, crackles, prolonged expiratory phas, rhonchi, tachypnea, wheezes Cardiovascular exam: PRESENT: RRR, +S1, +S2 Pulses: PRESENT: normal carotid pulses Vascular exam: PRESENT: normal capillary refill GI/Abdominal exam: PRESENT: normal bowel sounds, soft. ABSENT: guarding, rebound, tenderness Extremities exam: ABSENT: clubbing, pedal edema Musculoskeletal exam: PRESENT: normal inspection. ABSENT: deformity Neurological exam: PRESENT: oriented to person. ABSENT: oriented to situation Psychiatric exam: PRESENT: Somnolent but arousable Skin exam: PRESENT: dry, warm Results Laboratory Results: 04/04/20 04:32 04/04/20 04:32 04/04/20 04/04/20 04:32 04:32 WBC 6.5 RBC 4.10 L Hgb 13.1 L Hct 38.0 MCV 93 MCH 31.9 MCHC 34.4 RDW 13.4 Plt Count 199 Sodium 132.5 L Potassium 3.6 Chloride 104 Carbon Dioxide 23 Anion Gap 6 BUN 17 Creatinine 0.78 Est GFR ( Amer) > 60 Glucose 88 Calcium 8.3 L 04/02/20 04/02/20 04/02/20 02:12 15:39 15:39 Creatine Kinase 933 H 2425 H Troponin I < 0.012 04/03/20 04/04/20 05:05 04:32 Creatine Kinase 1348 H 567 H Troponin I Impressions: Head CT 04/02/20 02:43 IMPRESSION: Motion artifact. Otherwise, unremarkable unenhanced CT brain TECHNICAL DOCUMENTATION: Quality ID # 436: Final reports with documentation of one or more dose reduction techniques (e.g., Automated exposure control, adjustment of the mA and/or kV according to patient size, use of iterative reconstruction technique) copyright 2011 [employer]- All Rights Reserved Chest X-Ray 04/02/20 17:29 IMPRESSION: NO ACUTE RADIOGRAPHIC FINDING IN THE CHEST. Assessment and Plan - Diagnosis (1) Encephalopathy acute Is this a current diagnosis for this admission?: Yes Plan: At this time the etiology of his encephalopathy is unknown. Based on the sequence of events that we know of, it is possible that he had something metabolic occur as a result of him cutting grass being outside on a very hot day while simultaneously drinking beer which would diurese him and caused him to be dehydrated. He seems to have had worsening encephalopathy since this point. We do not have evidence of any toxic ingestion that would have caused this. He is on multiple mood altering medications but his said he is not been taking these consistently the last couple of days prior to admission. He does not really present like a withdrawal from alcohol or opiates. As soon as he is able to calm down some more we will try to repeat some imaging of his brain, ideally an MRI but he would not lay still long enough for a CT scan at this point so we will just have to reassess him after some time. He at least is stable and does not seem to be deteriorating. The impression currently is that he has a delirium that just needs some time to clear. This could be like a mild form of withdrawal. (2) Alcohol abuse Is this a current diagnosis for this admission?: Yes Plan: Will monitor closely for any signs of withdrawal. We will give him a banana bag with vitamins and thiamine. (3) Polypharmacy Is this a current diagnosis for this admission?: Yes Plan: Medications are being held right now in case he has had an accumulation of substances causing a combined toxic effect. PRN Jacqueline. (4) Dehydration Is this a current diagnosis for this admission?: Yes Plan: IV fluids, monitoring electrolytes and urine output (5) Rhabdomyolysis Qualifiers: Rhabdomyolysis type: non-traumatic Qualified Code(s): M62.82 - Rhabdomyolysis Is this a current diagnosis for this admission?: Yes Plan: Resolved (6) Tobacco dependence Is this a current diagnosis for this admission?: Yes Plan: Once his mental status improves will alcoholic counselor him regarding importance of smoking cessation - Time Time Spent with patient: 15-24 minutes
[2020-04-04] MEDS ORDERED: ONDANSETRON HCL INJ/PF 4 MG/2 ML SDV ONE (23:37)
[2020-04-04] MEDS ORDERED: ONDANSETRON HCL INJ/PF 4 MG/2 ML SDV IV PRN (23:46)
[2020-04-05] MEDS: RINGERS SOLUTION,LACTATED 1,000 ML IV PRN (04:05)
[2020-04-05 05:42] LABS: HEMATOCRIT 40.2 % (37.9-51.0); HEMOGLOBIN 13.7 g/dL (13.5-17.0); MEAN CORPUSCULAR HEMOGLOBIN 31.5 pg (27.0-33.4); MEAN CORPUSCULAR HGB CONC 34.1 g/dL (32.0-36.0); MEAN CORPUSCULAR VOLUME 92 fl (80-97); PLATELET COUNT 200 10^3/uL (150-450); RED BLOOD COUNT 4.35 10^6/uL (4.35-5.55); RED CELL DISTRIBUTION WIDTH 13.1 % (11.5-14.0)
[2020-04-05 06:19] LABS: ANION GAP 7 (5-19); BLOOD UREA NITROGEN 10 mg/dL (7-20); CALCIUM 8.9 mg/dL (8.4-10.2); CARBON DIOXIDE 25 mmol/L (22-30); CHLORIDE 103 mmol/L (98-107); CREATINE KINASE 265 U/L (55-170); GLUCOSE 107 mg/dL (75-110); POTASSIUM 3.9 mmol/L (3.6-5.0)
[2020-04-05] MEDS: NORMAL SALINE 1000 ML 1,000 ML with POTASSIUM CHLORIDE 20 MEQ, MAGNESIUM SULFATE 8 MEQ,... IV SCH ×5 (09:06)
[2020-04-05 16:49] VITALS: BP 156/89
--- NOTE | 2020-04-05 16:53 | PDOC DISCHARGE SUMMARY ---
Impression - Admit/DC Date/PCP Admission Date/Primary Care Provider: 04/04/20 13:06 ANGELA BROOKS PA-C Discharge Date: 04/05/20 - Discharge Diagnosis (1) Encephalopathy acute Is this a current diagnosis for this admission?: Yes (2) Alcohol abuse Is this a current diagnosis for this admission?: Yes (3) Polypharmacy Is this a current diagnosis for this admission?: Yes (4) Dehydration Is this a current diagnosis for this admission?: Yes (5) Rhabdomyolysis Is this a current diagnosis for this admission?: Yes (6) Tobacco dependence Is this a current diagnosis for this admission?: Yes (7) Heat exhaustion Is this a current diagnosis for this admission?: Yes - Additional Information Resuscitation Status: Full Code Discharge Diet: As Tolerated Discharge Activity: Activity As Tolerated Referrals: ANGELA BROOKS PA-C [Primary Care Provider] - (We will make an appointment for you and contact you with the date and time. Thank you and have a great day!) Home Medications: Cyclobenzaprine HCl [Flexeril 10 mg Tablet] 10 mg PO Q8HP PRN 04/02/20 Duloxetine HCl 60 mg PO Q12 04/02/20 Gabapentin 800 mg PO QID 04/02/20 Mirtazapine 45 mg PO QHS 04/02/20 Oxycodone HCl/Acetaminophen [Percocet 5-325 mg Tablet] 1 tab PO Q6HP PRN 04/02/20 Prazosin HCl 2 mg PO QHS 04/02/20 Quetiapine Fumarate 200 mg PO BID 04/02/20 Quetiapine Fumarate 400 mg PO QHS 04/02/20 History of Present Illiness History of Present Illness: JUANITA YAN is a 64 year old male with a history of alcohol and substance abuse (at least in the past), as well as bipolar disorder and is on multiple psychoactive drugs at home, who presents with encephalopathy. Apparently for the past couple of days at home his told EMS and the ER providers that he has "not been acting right." Apparently at one point he was found by his sleeping in their hallway at home. He has been missing doses of his medications. Apparently he was fine up until Monday morning. His told the ER that on Monday he was outside cutting the grass and drinking beer while he was doing so. He was been complaining intermittently of abdominal pain but whenever I examined his belly I got no pain response out of him whatsoever. In fact, after I got done examining his abdomen, he said it felt better. He has been intermittently encephalopathic throughout the day because he came to the ER very early in the morning. He is gotten intermittent doses of Geodon and morphine. I was told that by the time I saw him it was the most coherent he had been all day. I witnessed him once earlier in the day when I was down in the ER seeing someone else, and he was trying to get up out of the bed and could not stand up steadily and a nurse rushed into the room and got him back into the bed. He cannot explain to me why he feels the way he does now. He denies drinking too much alcohol or taking any drugs or eating any bad food. Initially when he came in they check some labs on him and his labs all look pretty good with the exception of his CPK. Initially it was around 900 and when it was checked again later on today it was up to over 2400, despite him having about 4 L of IV fluids at that point. Apparently his blood pressures were a little bit low but now his systolic is in the 130s. Head CT was not a good quality study because he would not lay still while they were getting the images. His toxicological screen show some marijuana but nothing other than that. He was supposed to be on Percocet at home but he does not have any opiates in his system. I do not know if this test will pick pack worker oxycodone or its metabolites. The specific etiology of his condition is not very clear, but he does seem improved compared to his initial presentation. He is being admitted for some more IV fluids for mild rhabdomyolysis and observation. Hospital Course Hospital Course: We withheld his medications and gave him fluids for a couple of days and mostly he slept and was encephalopathic. His CPK trended back towards normal. He never showed any signs of decompensation in regards to his renal function or electrolytes. He woke up today and his mental status was back to normal. He told me that he was out cutting grass and drinking beer all day the day before he presented to the hospital. I suspect that he had dehydration combined with a heat exertional illness. He did not have a heat stroke. He should be able to resume his usual medications. He has been instructed to stay out of the sun in the heat for at least a week and to make sure that he stays hydrated. He was strongly encouraged to cut back on his alcohol consumption, and to not be drinking alcohol while he is out in the heat due to his diuretic effect. When he goes back out to do anything outside during this high heat and humidity, I encouraged him to to outdoor activity early in the morning or later in the evening, and to do so in brief periods so that he can go back inside and drink some water and cool off. He verbalizes understanding. His labs and examination were reassuring and he was discharged in stable condition. Physical Exam Vital Signs: Temp Pulse Resp BP Pulse Ox 97.9 F 68 17 144/82 H 97 04/05/20 15:44 04/05/20 15:44 04/05/20 15:44 04/05/20 15:44 04/05/20 15:44 Intake & Output 04/04/20 04/05/20 04/06/20 06:59 06:59 06:59 Intake Total 2263 3263 700 Balance 2263 3263 700 Weight 84.1 kg 86.2 kg General appearance: PRESENT: cooperative, disheveled, no apparent distress Respiratory exam: PRESENT: clear to auscultation aliya, symmetrical, unlabored. ABSENT: accessory muscle use, chest wall tenderness, crackles, prolonged expiratory phas, rhonchi, tachypnea, wheezes Cardiovascular exam: PRESENT: RRR, +S1, +S2 Pulses: PRESENT: normal carotid pulses Vascular exam: PRESENT: normal capillary refill GI/Abdominal exam: PRESENT: normal bowel sounds, soft. ABSENT: guarding, rebound, tenderness Extremities exam: ABSENT: clubbing, pedal edema Musculoskeletal exam: PRESENT: normal inspection. ABSENT: deformity Neurological exam: PRESENT: oriented to person, oriented to place, oriented to situation Psychiatric exam: PRESENT: Appropriate affect, normal mood Skin exam: PRESENT: dry, warm Results Laboratory Results: WBC 6.0 10^3/uL (4.0-10.5) 04/05/20 04:35 RBC 4.35 10^6/uL (4.35-5.55) 04/05/20 04:35 Hgb 13.7 g/dL (13.5-17.0) 04/05/20 04:35 Hct 40.2 % (37.9-51.0) 04/05/20 04:35 MCV 92 fl (80-97) 04/05/20 04:35 MCH 31.5 pg (27.0-33.4) 04/05/20 04:35 MCHC 34.1 g/dL (32.0-36.0) 04/05/20 04:35 RDW 13.1 % (11.5-14.0) 04/05/20 04:35 Plt Count 200 10^3/uL (150-450) 04/05/20 04:35 Lymph % (Auto) 24.2 % (13-45) 04/02/20 15:39 [place] % (Auto) 7.8 % (3-13) 04/02/20 15:39 Eos % (Auto) 0.3 % (0-6) 04/02/20 15:39 Baso % (Auto) 0.3 % (0-2) 04/02/20 15:39 Absolute Neuts (auto) 6.7 10^3/uL (1.7-8.2) 04/02/20 15:39 Absolute Lymphs (auto) 2.4 10^3/uL (0.5-4.7) 04/02/20 15:39 Absolute Monos (auto) 0.8 10^3/uL (0.1-1.4) 04/02/20 15:39 Absolute Eos (auto) 0.0 10^3/uL (0.0-0.6) 04/02/20 15:39 Absolute Basos (auto) 0.0 10^3/uL (0.0-0.2) 04/02/20 15:39 Seg Neutrophils % 67.4 % (42-78) 04/02/20 15:39 Sodium 134.7 mmol/L (137-145) L 04/05/20 04:35 Potassium 3.9 mmol/L (3.6-5.0) 04/05/20 04:35 Chloride 103 mmol/L (98-107) 04/05/20 04:35 Carbon Dioxide 25 mmol/L (22-30) 04/05/20 04:35 Anion Gap 7 (5-19) 04/05/20 04:35 BUN 10 mg/dL (7-20) 04/05/20 04:35 Creatinine 0.90 mg/dL (0.52-1.25) 04/05/20 04:35 Est GFR ( Amer) > 60 (>60) 04/05/20 04:35 Est GFR (MDRD) Non-Af > 60 (>60) 04/05/20 04:35 Glucose 107 mg/dL (75-110) 04/05/20 04:35 Lactic Acid 1.7 mmol/L (0.7-2.1) 04/02/20 02:12 Calcium 8.9 mg/dL (8.4-10.2) 04/05/20 04:35 Total Bilirubin 0.7 mg/dL (0.2-1.3) 04/02/20 15:39 Direct Bilirubin 0.0 mg/dL (0.0-0.4) 04/02/20 15:39 Neonat Total Bilirubin Not Reportable 04/02/20 15:39 Neonat Direct Bilirubin Not Reportable 04/02/20 15:39 Neonat Indirect Bili Not Reportable 04/02/20 15:39 AST 85 U/L (17-59) H 04/02/20 15:39 ALT 24 U/L (<50) 04/02/20 15:39 Alkaline Phosphatase 136 U/L (38-126) H 04/02/20 15:39 Ammonia < 8.7 umol/L (9-33) L 04/02/20 02:57 Creatine Kinase 265 U/L (55-170) H 04/05/20 04:35 Troponin I < 0.012 ng/mL 04/02/20 15:39 Total Protein 7.3 g/dL (6.3-8.2) 04/02/20 15:39 Albumin 4.0 g/dL (3.5-5.0) 04/02/20 15:39 Lipase 50.1 U/L (23-300) 04/02/20 02:12 TSH 0.85 uIU/mL (0.47-4.68) 04/02/20 02:12 Urine Color INGRIS 04/02/20 04:22 Urine Appearance SLIGHTLY-CLOUDY 04/02/20 04:22 Urine pH 5.0 (5.0-9.0) 04/02/20 04:22 Ur Specific [place] 1.035 04/02/20 04:22 Urine Protein 30 mg/dL (NEGATIVE) H 04/02/20 04:22 Urine Glucose (UA) 150 mg/dL (NEGATIVE) H 04/02/20 04:22 Urine Ketones 80 mg/dL (NEGATIVE) H 04/02/20 04:22 Urine Blood MODERATE (NEGATIVE) H 04/02/20 04:22 Urine Nitrite NEGATIVE (NEGATIVE) 04/02/20 04:22 Urine Bilirubin NEGATIVE (NEGATIVE) 04/02/20 04:22 Urine Urobilinogen NEGATIVE mg/dL (<2.0) 04/02/20 04:22 Ur Leukocyte Esterase NEGATIVE (NEGATIVE) 04/02/20 04:22 Urine WBC (Auto) 1 /HPF 04/02/20 04:22 Urine RBC (Auto) 1 /HPF 04/02/20 04:22 Squamous Epi Cells Auto <1 /HPF 04/02/20 04:22 Urine Mucus (Auto) MANY /LPF 04/02/20 04:22 Urine Ascorbic Acid NEGATIVE (NEGATIVE) 04/02/20 04:22 Salicylates < 1.0 mg/dL (2.0-20.0) L 04/02/20 02:12 Urine Opiates Screen NEGATIVE 04/02/20 04:22 Urine Methadone Screen NEGATIVE 04/02/20 04:22 Acetaminophen < 10 ug/mL (10-30) L 04/02/20 02:12 Ur Barbiturates Screen NEGATIVE 04/02/20 04:22 Ur Phencyclidine Scrn NEGATIVE 04/02/20 04:22 Ur Amphetamines Screen NEGATIVE 04/02/20 04:22 U Benzodiazepines Scrn NEGATIVE 04/02/20 04:22 Urine Cocaine Screen NEGATIVE 04/02/20 04:22 U Marijuana (THC) Screen UNCONFIRMED POSITIVE 04/02/20 04:22 Serum Alcohol < 10 mg/dL (NONE DETECTED) 04/02/20 02:12 04/02/20 15:39 Troponin I < 0.012 Impressions: Head CT 04/02/20 02:43 IMPRESSION: Motion artifact. Otherwise, unremarkable unenhanced CT brain TECHNICAL DOCUMENTATION: Quality ID # 436: Final reports with documentation of one or more dose reduction techniques (e.g., Automated exposure control, adjustment of the mA and/or kV according to patient size, use of iterative reconstruction technique) copyright 2011 [employer]- All Rights Reserved Chest X-Ray 04/02/20 17:29 IMPRESSION: NO ACUTE RADIOGRAPHIC FINDING IN THE CHEST. Plan Time Spent: Greater than 30 Minutes Stroke Is this a Stroke Patient?: No Acute Heart Failure - Is this a Heart Failure Patient?: No
== END 2020-04-05 18:27 | disposition home or self-care (01) | DRG 923 ==
LOC: ER 01:37 → EH 18:47 → 4W 21:17 → 4N 04-03 17:00 → OBSVTOIN 04-04 13:06
PROVIDERS: ADMIT Family Medicine; ATTEND Family Medicine
DX: T67.5XXA Heat exhaustion, unspecified, initial encounter (principal); G93.40 Encephalopathy, unspecified; M62.82 Rhabdomyolysis; E86.0 Dehydration; F31.9 Bipolar disorder, unspecified; I10 Essential (primary) hypertension; J44.9 Chronic obstructive pulmonary disease, unspecified; M19.90 Unspecified osteoarthritis, unspecified site; F10.10 Alcohol abuse, uncomplicated; F17.200 Nicotine dependence, unspecified, uncomplicated; Z79.899 Other long term (current) drug therapy; Z88.0 Allergy status to penicillin; X58.XXXA Exposure to other specified factors, initial encounter; Y93.H9 Activity, other involving exterior property and land maintenance, building and construction; Y92.007 Garden or yard of unspecified non-institutional (private) residence as the place of occurrence of the external cause
CPT/HCPCS: 36415; 70450; 71045; 80048; 80053; 80307; 81001; 82140; 82550; 83605; 83690; 84443; 84484; 85025; 85027; 87040; 87070; 93005; 93010; 96361; 96372; 96374; 96375; 96376; 99285; G0378; J2060; J2270; J2405; J3411; J3475; J3480; J3486; J3490; J7030; J7040; J7120

== ENCOUNTER 2020-05-30 07:44 | Inpatient (IN) | payer MEDICARE ==
[2020-05-30 08:19] LABS: ABSOLUTE BASOPHILS # (AUTO) 0.1 10^3/uL (0.0-0.2); ABSOLUTE LYMPHOCYTES (AUTO) 1.6 10^3/uL (0.5-4.7); ABSOLUTE MONOCYTES (AUTO) 0.5 10^3/uL (0.1-1.4); ABSOLUTE NEUT (AUTO) 7.4 10^3/uL (1.7-8.2); BASOPHILS % (AUTO) 0.7 % (0-2); EOSINOPHILS % (AUTO) 0.3 % (0-6); HEMATOCRIT 44.6 % (37.9-51.0); HEMOGLOBIN 15.2 g/dL (13.5-17.0); LYMPHOCYTES % (AUTO) 16.4 % (13-45); MEAN CORPUSCULAR HEMOGLOBIN 31.5 pg (27.0-33.4); MEAN CORPUSCULAR VOLUME 93 fl (80-97); MONOCYTES % (AUTO) 5.3 % (3-13); PLATELET COUNT 328 10^3/uL (150-450); RED BLOOD COUNT 4.81 10^6/uL (4.35-5.55); RED CELL DISTRIBUTION WIDTH 13.8 % (11.5-14.0); SEGMENTED NEUTROPHILS % (AUTO) 77.3 % (42-78); TOTAL CELLS COUNTED % (AUTO) 100 %; WHITE BLOOD COUNT 9.5 10^3/uL (4.0-10.5)
[2020-05-30 08:36] LABS: ALBUMIN 4.4 g/dL (3.5-5.0); ALKALINE PHOSPHATASE 138 U/L (38-126); ANION GAP 9 (5-19); ASPARTATE AMINO TRANSFERASE 24 U/L (17-59); BILIRUBIN,DIRECT 0.2 mg/dL (0.0-0.4); BILIRUBIN,TOTAL 0.9 mg/dL (0.2-1.3); BLOOD UREA NITROGEN 21 mg/dL (7-20); CALCIUM 9.3 mg/dL (8.4-10.2); CARBON DIOXIDE 25 mmol/L (22-30); CHLORIDE 104 mmol/L (98-107); GLUCOSE 171 mg/dL (75-110); POTASSIUM 3.6 mmol/L (3.6-5.0)
[2020-05-30 09:34] LABS: APPEARANCE,URINE CLEAR; BILIRUBIN,URINE NEGATIVE (NEGATIVE); COLOR,URINE YELLOW; GLUCOSE, URINE 50 mg/dL (NEGATIVE); KETONES,URINE 20 mg/dL (NEGATIVE); LEUKOCYTE ESTERASE,URINE NEGATIVE (NEGATIVE); NITRITE,URINE NEGATIVE (NEGATIVE); PROTEIN,URINE 30 mg/dL (NEGATIVE); URINE SPECIFIC GRAVITY 1.026
--- NOTE | 2020-05-30 10:19 | ER Document Report ---
ED General - General Stated Complaint: BLOOD SUGAR ISSUES Time Seen by Provider: 05/30/20 10:05 Primary Care Provider: ANGELA BROOKS PA-C [Primary Care Provider] - Follow up as needed TRAVEL OUTSIDE OF THE [place] IN LAST 30 DAYS: No - HPI Notes: Patient is a 65-year-old male brought into the emergency department for evaluation via EMS. Entire history is obtained at this time from nursing note and EMS run sheet. Evidently the patient was drinking heavily yesterday, smoking marijuana with a friend. He admits to me that he does drink daily. He was lying on the floor in the position, moaning. EMS were called to the scene, found the patient to be hypoglycemic. He was administered D10 and brought to the ER for further evaluation. The patient can tell me that he drinks alcohol every day, but cannot tell me what he drinks nor how much he drinks. He states he cannot remember a day when he was not drinking. He denies any injuries or pain at this time. - Related Data Allergies/Adverse Reactions: Penicillins Allergy (Unknown, Verified 05/30/20 08:25) Past Medical History - General Information source: Patient, Emergency Med Personnel - Social History Smoking Status: Current Every Day Smoker Frequency of alcohol use: Heavy Drug Abuse: Marijuana Family History: COPD - Past Medical History Cardiac Medical History: Reports: Hx Hypertension Pulmonary Medical History: Reports: Hx COPD, Hx Pneumonia Denies: Hx Tuberculosis Endocrine Medical History: Reports: Hx Hypothyroidism Renal/ Medical History: Denies: Hx Peritoneal Dialysis Musculoskeletal Medical History: Reports Hx Arthritis Psychiatric Medical History: Reports: Hx Attention Deficit Hyperactivity Disorder, Hx Bipolar Disorder Denies: Hx Depression Past Surgical History: Reports: Hx Orthopedic Surgery - spinal fusion at lower lumbar area - Immunizations Hx Diphtheria, Pertussis, Tetanus Vaccination: Yes Review of Systems - Review of Systems -: Yes ROS unobtainable due to patient's medical condition Physical Exam - Vital signs Vitals: Resp Pulse Ox 21 H 100 05/30/20 07:55 05/30/20 07:55 - Notes Notes: This is an extremely disheveled 65-year-old male who appears his stated age. He is diaphoretic. He woke easily to verbal stimuli, is very confused. He tells m e is 1975. He stutters frequently, can only appropriately answer a few questions. Vital signs reviewed, please refer to chart. Head is normocephalic, atraumatic. Pupils equal round, reactive to light. Neck is supple without meningismus. Heart is regular rate and rhythm. Lungs are clear to auscultation bilaterally. Abdomen is soft, nontender, normoactive bowel sounds throughout. Extremities without cyanosis, clubbing. Posterior calves are nontender. Peripheral pulses are equal. No gross facial asymmetry. Patient moves all 4 extremities spontaneously, equal spanish instructor strength. Course - Re-evaluation Re-evalutation: 05/30/20 10:18 Patient presents to the emergency department for evaluation after hypoglycemic episode. Given his diaphoresis and confusion at this time, a repeat Accu-Chek was ordered. Patient was placed on contact isolation as it was noted he has bedbugs as well. I am concerned about the possibility of Warnicke's encephalopathy in this patient who is markedly hyperglycemic, who admits to not eating frequently. I am also concerned about an intracranial injury of some sort, versus some other metabolic derangement, versus simple alcohol withdrawal. Laboratory investigations ordered, patient is placed on the monitor. Imaging ordered including CT scan of the head. Awaiting repeat Accu-Chek results. Patient is currently stable, we will continue to monitor. 05/30/20 12:06 Patient remains confused, no longer diaphoretic, resting comfortably. His laboratory investigations failed to show any significant abnormality. CT scan is unremarkable as well. I spoke with Dr. Vasquez, he will accept the patient for further care. - Vital Signs Vital signs: Temp Pulse Resp BP Pulse Ox 98.1 F 13 178/93 H 97 05/30/20 08:01 05/30/20 09:01 05/30/20 09:01 05/30/20 09:01 - Laboratory Result Diagrams: 05/30/20 08:06 05/30/20 08:06 Laboratory results interpreted by me: 05/30/20 05/30/20 05/30/20 08:00 08:06 08:06 BUN 21 H Glucose 171 H POC Glucose 163 H Magnesium 2.4 H Alkaline Phosphatase 138 H Urine Protein Urine Glucose (UA) Urine Ketones Urine Urobilinogen Salicylates < 1.0 L Acetaminophen < 10 L 05/30/20 05/30/20 05/30/20 09:09 09:11 10:19 BUN Glucose POC Glucose 128 H 130 H Magnesium Alkaline Phosphatase Urine Protein 30 H Urine Glucose (UA) 50 H Urine Ketones 20 H Urine Urobilinogen 2.0 H Salicylates Acetaminophen - Diagnostic Test Radiology reviewed: Reports reviewed Radiology results interpreted by me: 05/30/20 12:[address] 05/30/20 10:15 IMPRESSION: NO ACUTE INTRACRANIAL IMAGING FINDINGS. EVIDENCE OF ACUTE STROKE: NO. - EKG Interpretation by Me Additional EKG results interpreted by me: 05/30/20 12:09 Sinus mechanism with rate of 76 bpm. Left axis deviation. Normal intervals. No acute ST changes concerning for ischemia or infarction. No significant change compared to prior study. Discharge - Discharge Clinical Impression: Encephalopathy acute, Alcohol abuse, Polypharmacy Altered mental status Qualifiers: Altered mental status type: unspecified Qualified Code(s): R41.82 - Altered mental status, unspecified Condition: Stable Disposition: ADMITTED INPATIENT Admitting Provider: Christina (Hospitalist) Unit Admitted: IMCU Referrals: ANGELA BROOKS PA-C [Primary Care Provider] - Follow up as needed
[2020-05-30 11:19] LABS: ACETAMINOPHEN < 10 ug/mL (10-30); ALCOHOL < 10 mg/dL (NONE DETECTED)
[2020-05-30 11:20] LABS: SALICYLATE < 1.0 mg/dL (2.0-20.0)
[2020-05-30 11:24] LABS: URINE AMPHETAMINES SCREEN NEGATIVE; URINE BARBITURATES SCREEN NEGATIVE; URINE BENZODIAZEPINES SCREEN NEGATIVE; URINE METHADONE SCREEN NEGATIVE
[2020-05-30 11:32] LABS: URINE PHENCYCLIDINE SCREEN NEGATIVE
[2020-05-30 11:33] LABS: URINE COCAINE SCREEN UNCONFIRMED POSITIVE; URINE MARIJUANA (THC) SCREEN UNCONFIRMED POSITIVE
--- NOTE | 2020-05-30 11:52 | RADIOLOGY REPORT (SQ) ---
EXAM DESCRIPTION: CT HEAD WITHOUT IMAGES COMPLETED DATE/TIME: 05/30/2020 10:37 am REASON FOR STUDY: altered mental status COMPARISON: None. TECHNIQUE: Axial images acquired through the brain without intravenous contrast. Images reviewed wi th bone, brain and subdural windows. Additional sagittal and coronal reconstructions were generated. Images stored on PACS. All CT scanners at this facility use dose modulation, iterative reconstruction, and/or weight based d osing when appropriate to reduce radiation dose to as low as reasonably achievable (ALARA). [facility]: Dose Right [facility]: CareDose [facility]: Dose Right [facility]: Teradose 4D [facility]: Smart Victrio RADIATION DOSE: CT Rad equipment meets quality standard of care and radiation dose reduction techniq ues were employed. CTDIvol: 53.2 mGy. DLP: 1230 mGy-cm. mGy. LIMITATIONS: None. FINDINGS: VENTRICLES: Normal size and contour. CEREBRUM: No masses. No hemorrhage. No midline shift. No evidence for acute infarction. Normal gra y/white matter differentiation. No areas of low density in the white matter. CEREBELLUM: No masses. No hemorrhage. No alteration of density. No evidence for acute infarction. EXTRAAXIAL SPACES: No fluid collections. No masses. ORBITS AND GLOBE: No intra- or extraconal masses. Normal contour of globe without masses. CALVARIUM: No fracture. PARANASAL SINUSES: No fluid or mucosal thickening. SOFT TISSUES: No mass or hematoma. OTHER: No other significant finding. IMPRESSION: NO ACUTE INTRACRANIAL IMAGING FINDINGS. EVIDENCE OF ACUTE STROKE: NO. COMMENT: Quality ID # [id number]: Final reports with documentation of one or more dose reduction techniques (e.g., Automated exposure control, adjustment of the mA and/or kV according to patient size, use of iterative reconstruction technique) TECHNICAL DOCUMENTATION: JOB ID: [id number] 2010 [employer]- All Rights Reserved Reading location - IP/workstation name: [email or web address]
[2020-05-30] MEDS ORDERED: NORMAL SALINE 1000 ML 1,000 ML with POTASSIUM CHLORIDE 20 MEQ, MAGNESIUM SULFATE 8 MEQ,... IV SCH ×10 (12:00→18:00)
--- NOTE | 2020-05-30 14:03 | EKG REPORT ---
SEVERITY:- ABNORMAL ECG - SINUS RHYTHM LEFT ANTERIOR FASCICULAR BLOCK : Confirmed by: Maci Treviño 30-May-2020 14:02:57
[2020-05-30] MEDS ORDERED: RINGERS SOLUTION,LACTATED 1,000 ML IV PRN (18:15)
[2020-05-30] MEDS ORDERED: IPRATROPIUM/ALBUTEROL 0.5-2.5 MG/3 ML AMPUL NEB PRN (18:15)
[2020-05-30] MEDS ORDERED: ACETAMINOPHEN 325 MG TABLET PO PRN (18:15)
[2020-05-30] MEDS ORDERED: HALOPERIDOL LACTATE INJ 5 MG/1 ML VIAL IV PRN (18:15)
[2020-05-30] MEDS ORDERED: ONDANSETRON 4 MG TAB.RAPDIS PO PRN (18:15)
[2020-05-30] MEDS ORDERED: LORAZEPAM INJ 2 MG/1 ML VIAL IV PRN (18:15)
[2020-05-30] MEDS ORDERED: ONDANSETRON HCL INJ/PF 4 MG/2 ML SDV IV PRN (18:15)
--- NOTE | 2020-05-30 18:56 | ADVANCED CARE ---
- Diagnosis (1) Acute metabolic encephalopathy Diagnosis Current: Yes (2) Alcohol abuse Diagnosis Current: Yes (3) Polysubstance abuse Diagnosis Current: Yes (4) Hypertensive urgency Diagnosis Current: Yes (5) Hypoglycemia Diagnosis Current: Yes (6) PTSD (post-traumatic stress disorder) Diagnosis Current: Yes (7) Bipolar disorder Diagnosis Current: Yes (8) Crack cocaine use Diagnosis Current: Yes (9) Tobacco dependence Diagnosis Current: Yes (10) Altered mental status Diagnosis Current: Yes (11) Alcohol abuse Diagnosis Current: Yes Attendance: Patient and on the phone Resuscitation Status: Full Code Discussion: All aspects of code status discussed with patient/POA including cardioversion, chest compressions, and intubation and the patient/POA indicated they wish to be full code MPOA is designated as: Time Spent: Greater than 16 minutes
--- NOTE | 2020-05-30 18:56 | PDOC H&P ---
History of Present Illness Admission Date/PCP: 05/30/20 12:32 ANGELA BROOKS PA-C History of Present Illness: JUANITA YAN is a 65 year old male PMH significant for PTSD, bipolar disorder, tobacco abuse, polysubstance abuse who presents to the ER after 1 day history of confusion and altered mental status, found by his curled up in the position mumbling nonsensical phrases. EMS came to patient's house and he was found to have blood sugar in the 30s, he was given sugar supplement and rechecked with his blood sugar in the 200s. Patient brought to ED and had a CT scan of his head which was negative for acute process. Patient is also infected with bedbugs and has these in his home. Review of labs showed primarily unremarkable results except for mildly elevated alk phos, and UDS positive for cocaine and marijuana. Alcohol level was negative. Troponin negative. Patient speaking nonsense on admission, at times difficult to follow conversation. Will admit for acute metabolic encephalopathy work-up. Patient's is a diabetic and has insulin in the home, possible patient has injected himself with this. We will check C-peptide and insulin level. He does have a history of suicide attempt in the distant past. Psychiatry will need to see the patient in consult as well. We will get MRI brain with and without contrast. He does have hardware in his low back from a prior surgery however his states that this was deemed safe for MRI. Patient takes multiple psychiatric medications which we will restart here. He will be on CIWA as well as notes he has been drinking excessively in recent history. Blood pressure notably elevated with systolics in the 180s on admission. Started on nifedipine. Past Medical History Cardiac Medical History: Reports: Hypertension Pulmonary Medical History: Reports: Chronic Obstructive Pulmonary Disease (COPD), Pneumonia Denies: Tuberculosis Endocrine Medical History: Reports: Hypothyroidism Musculoskeltal Medical History: Reports: Arthritis Psychiatric Medical History: Reports: Attention Deficit Hyperactivity Disorder, Bipolar Disorder Denies: Depression Past Surgical History Past Surgical History: Reports: Orthopedic Surgery - spinal fusion at lower lumbar area Social History Smoking Status: Current Every Day Smoker Frequency of Alcohol Use: None Hx Recreational Drug Use: Yes Drugs: Cocaine, Marijuana Hx Prescription Drug Abuse: No - Advance Directive Resuscitation Status: Full Code Surrogate healthcare decision maker:: Family History Family History: COPD Parental Family History Reviewed: Yes Children Family History Reviewed: Yes Sibling(s) Family History Reviewed.: Yes Medication/Allergy Home Medications: Cyclobenzaprine HCl [Flexeril 10 mg Tablet] 10 mg PO Q8HP PRN 04/02/20 Duloxetine HCl 60 mg PO Q12 04/02/20 Gabapentin 800 mg PO QID 04/02/20 Mirtazapine 45 mg PO QHS 04/02/20 Oxycodone HCl/Acetaminophen [Percocet 5-325 mg Tablet] 1 tab PO Q6HP PRN 04/02/20 Prazosin HCl 2 mg PO QHS 04/02/20 Quetiapine Fumarate 200 mg PO BID 04/02/20 Quetiapine Fumarate 400 mg PO QHS 04/02/20 Allergies/Adverse Reactions: Penicillins Allergy (Unknown, Verified 05/30/20 08:25) Review of Systems All systems: reviewed and no additional remarkable complaints except as stated - Review of systems per HPI, otherwise negative Physical Exam Vital Signs: Temp Pulse Resp BP Pulse Ox 98.1 F 20 162/79 H 96 05/30/20 08:01 05/30/20 17:01 05/30/20 17:01 05/30/20 17:01 Intake & Output 05/29/20 05/30/20 05/31/20 06:59 06:59 06:59 Intake Total 1023 Balance 1023 Weight 90.7 kg General appearance: PRESENT: no acute distress, well-developed, well-nourished Head exam: PRESENT: atraumatic, normocephalic Eye exam: PRESENT: conjunctiva pink Mouth exam: PRESENT: moist Respiratory exam: PRESENT: clear to auscultation aliya. ABSENT: rales, rhonchi, wheezes Cardiovascular exam: PRESENT: RRR. ABSENT: diastolic murmur, rubs, systolic murmur GI/Abdominal exam: PRESENT: normal bowel sounds, soft. ABSENT: distended, guarding, mass, organolmegaly, rebound, tenderness Neurological exam: PRESENT: alert, awake, CN II-XII grossly intact. ABSENT: oriented to person, oriented to place, oriented to time, oriented to situation, motor sensory deficit Psychiatric exam: PRESENT: anxious, manic, unusual affect Focused psych exam: PRESENT: restlessness Skin exam: PRESENT: dry, intact, warm Results Laboratory Results: 05/30/20 08:06 05/30/20 08:06 05/30/20 05/30/20 05/30/20 08:06 08:06 08:06 WBC 9.5 RBC 4.81 Hgb 15.2 Hct 44.6 MCV 93 MCH 31.5 MCHC 34.0 RDW 13.8 Plt Count 328 Seg Neutrophils % 77.3 Sodium 138.3 Cancelled Potassium 3.6 Cancelled Chloride 104 Cancelled Carbon Dioxide 25 Cancelled Anion Gap 9 Cancelled BUN 21 H Cancelled Creatinine 0.93 Cancelled Est GFR ( Amer) > 60 Cancelled Est GFR (Non-Af Amer) Cancelled Glucose 171 H Cancelled Calcium 9.3 Cancelled Magnesium 2.4 H Total Bilirubin 0.9 Cancelled AST 24 Cancelled Alkaline Phosphatase 138 H Cancelled Total Protein 8.0 Cancelled Albumin 4.4 Cancelled Urine Color Urine Appearance Urine pH Ur Specific [place] Urine Protein Urine Glucose (UA) Urine Ketones Urine Blood Urine Nitrite Ur Leukocyte Esterase Urine WBC (Auto) Urine RBC (Auto) 05/30/20 09:11 WBC RBC Hgb Hct MCV MCH MCHC RDW Plt Count Seg Neutrophils % Sodium Potassium Chloride Carbon Dioxide Anion Gap BUN Creatinine Est GFR ( Amer) Est GFR (Non-Af Amer) Glucose Calcium Magnesium Total Bilirubin AST Alkaline Phosphatase Total Protein Albumin Urine Color YELLOW Urine Appearance CLEAR Urine pH 5.0 Ur Specific [place] 1.026 Urine Protein 30 H Urine Glucose (UA) 50 H Urine Ketones 20 H Urine Blood NEGATIVE Urine Nitrite NEGATIVE Ur Leukocyte Esterase NEGATIVE Urine WBC (Auto) 0 Urine RBC (Auto) 1 05/30/20 08:06 Troponin I < 0.012 Impressions: Head CT 05/30/20 10:15 IMPRESSION: NO ACUTE INTRACRANIAL IMAGING FINDINGS. EVIDENCE OF ACUTE STROKE: NO. Assessment and Plan - Diagnosis (1) Acute metabolic encephalopathy Is this a current diagnosis for this admission?: Yes Plan: Multifactorial: Baseline has multiple psychiatric illnesses, polypharmacy with psychiatric meds, polysubstance abuse with cocaine/marijuana/alcohol, hypoglycemia from possible self-inflicted harm by using 's insulin C-peptide, insulin level Restart home psychiatric meds in case he is withdrawing from these Psychiatric consult MRI brain with and without contrast, per the hardware in his back is safe for MRI [facility] (2) Alcohol abuse Is this a current diagnosis for this admission?: Yes Plan: Unclear how much alcohol he has been drinking each day as patient refuses to tell me and is not sure of the exact amount but notices patient chooses beer over water which more frequently currently CIWA, watch for withdrawal As needed Ativan (3) Polysubstance abuse Is this a current diagnosis for this admission?: Yes Plan: UDS positive for marijuana and cocaine, patient admits to using marijuana but denies cocaine with a very strange affect CIWA and Ativan as needed Counseled on cessation (4) Hypertensive urgency Is this a current diagnosis for this admission?: Yes Plan: SBP up to 180s on admission Started on verapamil oral every 8 hours low-dose in setting of cocaine abuse Avoid beta-blockers and non-dihydropyridine calcium channel blockers; if BP is still uncontrolled can start patient on clonidine which may also help with withdrawal (5) Hypoglycemia Is this a current diagnosis for this admission?: Yes Plan: Unclear etiology, possible patient injected himself with his 's insulin but does not believe this is the case C-peptide and insulin level Accu-Cheks LR Cardiac diet (6) PTSD (post-traumatic stress disorder) Is this a current diagnosis for this admission?: Yes Plan: Restarted multiple psychiatric medications, possible patient quit taking these abruptly and is withdrawing Psychiatric consult (7) Bipolar disorder Is this a current diagnosis for this admission?: Yes (8) Crack cocaine use Is this a current diagnosis for this admission?: Yes Plan: Seen on UDS but patient denies using it (9) Tobacco dependence Is this a current diagnosis for this admission?: Yes Plan: Counseled on cessation (10) Altered mental status Qualifiers: Altered mental status type: unspecified Qualified Code(s): R41.82 - Altered mental status, unspecified Is this a current diagnosis for this admission?: Yes (11) Alcohol abuse Is this a current diagnosis for this admission?: Yes - Time Time Spent with patient: 35 or more minutes Smoking Cessation Education: 3 to 10 minutes Medications reviewed and adjusted accordingly: Yes Anticipated Discharge Disposition: Home, Self Care Anticipated Discharge Timeframe: within 72 hours - Inpatient Certification Based on my medical assessment, after consideration of the patient's comorbidities, presenting symptoms, or acuity I expect that the services needed warrant INPATIENT care.: Yes I certify that my determination is in accordance with my understanding of Medicare's requirements for reasonable and necessary INPATIENT services [42 CFR 412.3e].: Yes Medical Necessity: Significant Comorbidiites Make Outpatient Treatment Too Risky, Need Close Monitoring Due to Risk of Patient Decompensation, Risk of Complication if Not Cared For in Hospital, Risk of Diagnosis Which Will Require Inpatient Eval/Care/Monitoring
[2020-05-30] MEDS ORDERED: NIFEDIPINE 30 MG TAB.ER.24 PO SCH (19:00)
[2020-05-30] MEDS: ENOXAPARIN SODIUM INJ 40 MG/0.4 ML DISP.SYRIN SUBCUT SCH (19:34)
[2020-05-30] MEDS ORDERED: VERAPAMIL HCL 80 MG TABLET ONE (20:58)
[2020-05-30] MEDS ORDERED: DOXAZOSIN MESYLATE 2 MG TABLET PO SCH (22:00)
[2020-05-30] MEDS ORDERED: QUETIAPINE FUMARATE 100 MG TABLET PO SCH (22:00)
[2020-05-30] MEDS ORDERED: MIRTAZAPINE 15 MG TABLET PO SCH (22:00)
[2020-05-30] MEDS: GABAPENTIN 400 MG CAPSULE PO SCH (22:39)
[2020-05-30] MEDS: DULOXETINE HCL 30 MG CAPSULE.DR PO SCH (22:39)
[2020-05-30] MEDS: VERAPAMIL HCL 80 MG TABLET PO SCH ×2 (22:40→22:41)
[2020-05-31] MEDS: THIAMINE HCL 100 MG, FOLIC ACID 1 MG in NORMAL SALINE 250 ML IV SCH ×2 (00:09→09:15)
[2020-05-31] MEDS: VERAPAMIL HCL 80 MG TABLET PO SCH (05:38)
[2020-05-31 06:34] LABS: ABSOLUTE EOSINOPHILS # (AUTO) 0.1 10^3/uL (0.0-0.6); ABSOLUTE LYMPHOCYTES (AUTO) 2.7 10^3/uL (0.5-4.7); ABSOLUTE MONOCYTES (AUTO) 0.7 10^3/uL (0.1-1.4); ABSOLUTE NEUT (AUTO) 4.1 10^3/uL (1.7-8.2); BASOPHILS % (AUTO) 0.5 % (0-2); EOSINOPHILS % (AUTO) 1.3 % (0-6); HEMATOCRIT 41.6 % (37.9-51.0); HEMOGLOBIN 14.2 g/dL (13.5-17.0); LYMPHOCYTES % (AUTO) 35.2 % (13-45); MEAN CORPUSCULAR HEMOGLOBIN 31.6 pg (27.0-33.4); MEAN CORPUSCULAR HGB CONC 34.1 g/dL (32.0-36.0); MEAN CORPUSCULAR VOLUME 93 fl (80-97); MONOCYTES % (AUTO) 8.8 % (3-13); PLATELET COUNT 237 10^3/uL (150-450); RED CELL DISTRIBUTION WIDTH 13.9 % (11.5-14.0); SEGMENTED NEUTROPHILS % (AUTO) 54.2 % (42-78); TOTAL CELLS COUNTED % (AUTO) 100 %; WHITE BLOOD COUNT 7.6 10^3/uL (4.0-10.5)
[2020-05-31 06:52] LABS: ANION GAP 9 (5-19); BLOOD UREA NITROGEN 19 mg/dL (7-20); CALCIUM 8.9 mg/dL (8.4-10.2); CARBON DIOXIDE 21 mmol/L (22-30); CHLORIDE 108 mmol/L (98-107); GLUCOSE 95 mg/dL (75-110); PHOSPHORUS 3.4 mg/dL (2.5-4.5)
[2020-05-31] MEDS: GABAPENTIN 400 MG CAPSULE PO SCH (09:20)
[2020-05-31] MEDS: ENOXAPARIN SODIUM INJ 40 MG/0.4 ML DISP.SYRIN SUBCUT SCH (09:20)
[2020-05-31] MEDS: DULOXETINE HCL 30 MG CAPSULE.DR PO SCH (09:20)
[2020-05-31 09:36] VITALS: BP 144/90
[2020-05-31] MEDS ORDERED: QUETIAPINE FUMARATE 100 MG TABLET PO SCH (10:00)
[2020-05-31] MEDS ORDERED: DOCUSATE SODIUM 100 MG CAPSULE PO SCH (10:00)
--- NOTE | 2020-05-31 12:17 | PDOC DISCHARGE SUMMARY ---
Impression - Admit/DC Date/PCP Admission Date/Primary Care Provider: 05/30/20 12:32 ANGELA BROOKS PA-C Discharge Date: 05/31/20 - Discharge Diagnosis (1) Acute metabolic encephalopathy Is this a current diagnosis for this admission?: Yes (2) Alcohol abuse Is this a current diagnosis for this admission?: Yes (3) Polysubstance abuse Is this a current diagnosis for this admission?: Yes (4) Hypertensive urgency Is this a current diagnosis for this admission?: Yes (5) Hypoglycemia Is this a current diagnosis for this admission?: Yes (6) PTSD (post-traumatic stress disorder) Is this a current diagnosis for this admission?: Yes (7) Bipolar disorder Is this a current diagnosis for this admission?: Yes (8) Crack cocaine use Is this a current diagnosis for this admission?: Yes (9) Tobacco dependence Is this a current diagnosis for this admission?: Yes (10) Altered mental status Is this a current diagnosis for this admission?: Yes (11) Alcohol abuse Is this a current diagnosis for this admission?: Yes - Additional Information Resuscitation Status: Full Code Discharge Diet: As Tolerated, Cardiac Discharge Activity: Activity As Tolerated, Balance Activity w/Rest Referrals: ANGELA BROOKS PA-C [Primary Care Provider] - Follow up as needed Home Medications: Duloxetine HCl 60 mg PO Q12 04/02/20 Gabapentin 800 mg PO Q6 04/02/20 Mirtazapine 45 mg PO QHS 04/02/20 Prazosin HCl 2 mg PO QHS 04/02/20 Quetiapine Fumarate 200 mg PO BID 04/02/20 Quetiapine Fumarate 400 mg PO QHS 04/02/20 Methocarbamol [Robaxin 500 mg Tablet] 500 mg PO Q6HP PRN 05/31/20 History of Present Illiness History of Present Illness: JUANITA YAN is a 65 year old male PMH significant for PTSD, bipolar disorder, tobacco abuse, polysubstance abuse who presents to the ER after 1 day history of confusion and altered mental status, found by his curled up in the position mumbling nonsensical phrases. EMS came to patient's house and he was found to have blood sugar in the 30s, he was given sugar supplement and rechecked with his blood sugar in the 200s. Patient brought to ED and had a CT scan of his head which was negative for acute process. Patient is also infected with bedbugs and has these in his home. Review of labs showed primarily unremarkable results except for mildly elevated alk phos, and UDS positive for cocaine and marijuana. Alcohol level was negative. Troponin negative. Patient speaking nonsense on admission, at times difficult to follow conversation. Will admit for acute metabolic encephalopathy work-up. Patient's is a diabetic and has insulin in the home, possible patient has injected himself with this. We will check C-peptide and insulin level. He does have a history of suicide attempt in the distant past. Psychiatry will need to see the patient in consult as well. We will get MRI brain with and without contrast. He does have hardware in his low back from a prior surgery however his states that this was deemed safe for MRI. Patient takes multiple psychiatric medications which we will restart here. He will be on CIWA as well as notes he has been drinking excessively in recent history. Blood pressure notably elevated with systolics in the 180s on admission. Started on nifedipine. Hospital Course Hospital Course: Patient admitted with acute metabolic encephalopathy and confusion, found down by his after he was "partying" with a friend of his. Patient mentation completely clear and back to his baseline on the day after admission. He does openly admit to smoking crack cocaine as well as smoking marijuana and drinking alcohol. He states he has done this in the past with similar results. Work-up here has been overall negative and I suspect that the cocaine may have caused the metabolic abnormalities that led to his hypoglycemia, not to mention the fact that the patient did not have anything to eat or drink while he was intoxicated and passed out. Patient states he will try to not abuse all of these substances in the future. Patient states he has been conversing with his on the phone this morning when she is willing and able to come and pick him up after discharge. Patient requesting to be discharged stating he is back to baseline and would like to go home. C-peptide and insulin level is still pending as these are send out labs it seems. Given that the patient now admits to using cocaine, is much less likely that he injected his 's insulin. More likely his polysubstance abuse and lack of eating/drinking or other cause of his hypoglycemia. Patient is also refused some medications this morning per nursing stating he does not need them. He is to resume all of his home psychiatric medications as prescribed by his outpatient doctors. He will need to follow-up with his PCP and psychiatrist. (1) Acute metabolic encephalopathy Is this a current diagnosis for this admission?: Yes Plan: Multifactorial: Baseline has multiple psychiatric illnesses, polypharmacy with psychiatric meds, polysubstance abuse with cocaine/marijuana/alcohol, hypoglycemia from possible self-inflicted harm by using 's insulin C-peptide, insulin level Restart home psychiatric meds in case he is withdrawing from these Psychiatric consult As needed Ativan and Haldol CIWA stopped (2) Alcohol abuse Is this a current diagnosis for this admission?: Yes Plan: Unclear how much alcohol he has been drinking each day as patient refuses to tell me and is not sure of the exact amount but notices patient chooses beer over water which more frequently currently CIWA, no signs of withdrawal As needed Ativan (3) Polysubstance abuse Is this a current diagnosis for this admission?: Yes Plan: UDS positive for marijuana and cocaine, patient admits to using marijuana but denies cocaine with a very strange affect CIWA and Ativan as needed Counseled on cessation (4) Hypertensive urgency Is this a current diagnosis for this admission?: Yes Plan: SBP up to 180s on admission Started on verapamil oral every 8 hours low-dose in setting of cocaine abuse Avoid beta-blockers and non-dihydropyridine calcium channel blockers; if BP is still uncontrolled can start patient on clonidine which may also help with withdrawal -resume home meds at dc (5) Hypoglycemia Is this a current diagnosis for this admission?: Yes Plan: Unclear etiology, most likely from cocaine use along with not taking any PO for many hourse per pt; possible patient injected himself with his 's insulin but does not believe this is the case and pt denies it C-peptide and insulin level sent out, unlikely pt abused his 's insulin Accu-Cheks LR Cardiac diet (6) PTSD (post-traumatic stress disorder) Is this a current diagnosis for this admission?: Yes Plan: Restarted multiple psychiatric medications, possible patient quit taking these abruptly and is withdrawing Psychiatric FU outpt (7) Bipolar disorder Is this a current diagnosis for this admission?: Yes (8) Crack cocaine use Is this a current diagnosis for this admission?: Yes Plan: Seen on UDS, pt admits to using it regularly (9) Tobacco dependence Is this a current diagnosis for this admission?: Yes Plan: Counseled on cessation (10) Altered mental status Qualifiers: Altered mental status type: unspecified Qualified Code(s): R41.82 - Altered mental status, unspecified Is this a current diagnosis for this admission?: Yes (11) Alcohol abuse Is this a current diagnosis for this admission?: Yes Denies daily use, confirmed this as well Physical Exam Vital Signs: Temp Pulse Resp BP Pulse Ox 98.2 F 86 18 144/90 H 94 05/31/20 07:42 05/31/20 07:33 05/31/20 07:33 05/31/20 07:33 05/31/20 07:33 Intake & Output 05/30/20 05/31/20 06/01/20 06:59 06:59 06:59 Intake Total 1923 Output Total 0 Balance 1923 Weight 85 kg General appearance: PRESENT: no acute distress, well-developed, well-nourished Head exam: PRESENT: atraumatic, normocephalic Eye exam: PRESENT: conjunctiva pink Mouth exam: PRESENT: moist Respiratory exam: PRESENT: clear to auscultation aliya. ABSENT: rales, rhonchi, wheezes GI/Abdominal exam: PRESENT: normal bowel sounds, soft. ABSENT: distended, guarding, mass, organolmegaly, rebound, tenderness Neurological exam: PRESENT: alert, awake, oriented to person, oriented to place, oriented to time, oriented to situation, CN II-XII grossly intact. ABSENT: motor sensory deficit Psychiatric exam: PRESENT: appropriate affect, normal mood Skin exam: PRESENT: dry, intact, warm Results Laboratory Results: WBC 7.6 10^3/uL (4.0-10.5) 05/31/20 06:03 RBC 4.50 10^6/uL (4.35-5.55) 05/31/20 06:03 Hgb 14.2 g/dL (13.5-17.0) 05/31/20 06:03 Hct 41.6 % (37.9-51.0) 05/31/20 06:03 MCV 93 fl (80-97) 05/31/20 06:03 MCH 31.6 pg (27.0-33.4) 05/31/20 06:03 MCHC 34.1 g/dL (32.0-36.0) 05/31/20 06:03 RDW 13.9 % (11.5-14.0) 05/31/20 06:03 Plt Count 237 10^3/uL (150-450) 05/31/20 06:03 Lymph % (Auto) 35.2 % (13-45) 05/31/20 06:03 [place] % (Auto) 8.8 % (3-13) 05/31/20 06:03 Eos % (Auto) 1.3 % (0-6) 05/31/20 06:03 Baso % (Auto) 0.5 % (0-2) 05/31/20 06:03 Absolute Neuts (auto) 4.1 10^3/uL (1.7-8.2) 05/31/20 06:03 Absolute Lymphs (auto) 2.7 10^3/uL (0.5-4.7) 05/31/20 06:03 Absolute Monos (auto) 0.7 10^3/uL (0.1-1.4) 05/31/20 06:03 Absolute Eos (auto) 0.1 10^3/uL (0.0-0.6) 05/31/20 06:03 Absolute Basos (auto) 0.0 10^3/uL (0.0-0.2) 05/31/20 06:03 Seg Neutrophils % 54.2 % (42-78) 05/31/20 06:03 Sodium 137.7 mmol/L (137-145) 05/31/20 06:03 Potassium 4.0 mmol/L (3.6-5.0) 05/31/20 06:03 Chloride 108 mmol/L (98-107) H 05/31/20 06:03 Carbon Dioxide 21 mmol/L (22-30) L 05/31/20 06:03 Anion Gap 9 (5-19) 05/31/20 06:03 BUN 19 mg/dL (7-20) 05/31/20 06:03 Creatinine 0.96 mg/dL (0.52-1.25) 05/31/20 06:03 Est GFR ( Amer) > 60 (>60) 05/31/20 06:03 Est GFR (Non-Af Amer) Cancelled 05/30/20 08:06 Est GFR (MDRD) Non-Af > 60 (>60) 05/31/20 06:03 Glucose 95 mg/dL (75-110) 05/31/20 06:03 POC Glucose 94 mg/dL (70-110) 05/31/20 05:29 Calcium 8.9 mg/dL (8.4-10.2) 05/31/20 06:03 Phosphorus 3.4 mg/dL (2.5-4.5) 05/31/20 06:03 Magnesium 2.4 mg/dL (1.6-2.3) H 05/31/20 06:03 Total Bilirubin 0.9 mg/dL (0.2-1.3) 05/30/20 08:06 Total Bilirubin Cancelled 05/30/20 08:06 Direct Bilirubin 0.2 mg/dL (0.0-0.4) 05/30/20 08:06 Direct Bilirubin Cancelled 05/30/20 08:06 Neonat Total Bilirubin Cancelled 05/30/20 08:06 Neonat Total Bilirubin Not Reportable 05/30/20 08:06 Neonat Direct Bilirubin Cancelled 05/30/20 08:06 Neonat Direct Bilirubin Not Reportable 05/30/20 08:06 Neonat Indirect Bili Cancelled 05/30/20 08:06 Neonat Indirect Bili Not Reportable 05/30/20 08:06 AST 24 U/L (17-59) 05/30/20 08:06 AST Cancelled 05/30/20 08:06 ALT 14 U/L (<50) 05/30/20 08:06 ALT Cancelled 05/30/20 08:06 Alkaline Phosphatase 138 U/L (38-126) H 05/30/20 08:06 Alkaline Phosphatase Cancelled 05/30/20 08:06 Troponin I < 0.012 ng/mL 05/30/20 08:06 Total Protein 8.0 g/dL (6.3-8.2) 05/30/20 08:06 Total Protein Cancelled 05/30/20 08:06 Albumin 4.4 g/dL (3.5-5.0) 05/30/20 08:06 Albumin Cancelled 05/30/20 08:06 EGFR Cancelled 05/30/20 08:06 Urine Color YELLOW 05/30/20 09:11 Urine Appearance CLEAR 05/30/20 09:11 Urine pH 5.0 (5.0-9.0) 05/30/20 09:11 Ur Specific [place] 1.026 05/30/20 09:11 Urine Protein 30 mg/dL (NEGATIVE) H 05/30/20 09:11 Urine Glucose (UA) 50 mg/dL (NEGATIVE) H 05/30/20 09:11 Urine Ketones 20 mg/dL (NEGATIVE) H 05/30/20 09:11 Urine Blood NEGATIVE (NEGATIVE) 05/30/20 09:11 Urine Nitrite NEGATIVE (NEGATIVE) 05/30/20 09:11 Urine Bilirubin NEGATIVE (NEGATIVE) 05/30/20 09:11 Urine Urobilinogen 2.0 mg/dL (<2.0) H 05/30/20 09:11 Ur Leukocyte Esterase NEGATIVE (NEGATIVE) 05/30/20 09:11 Urine WBC (Auto) 0 /HPF 05/30/20 09:11 Urine RBC (Auto) 1 /HPF 05/30/20 09:11 Urine Ascorbic Acid NEGATIVE (NEGATIVE) 05/30/20 09:11 Salicylates < 1.0 mg/dL (2.0-20.0) L 05/30/20 08:06 Urine Opiates Screen NEGATIVE 05/30/20 09:11 Urine Methadone Screen NEGATIVE 05/30/20 09:11 Acetaminophen < 10 ug/mL (10-30) L 05/30/20 08:06 Ur Barbiturates Screen NEGATIVE 05/30/20 09:11 Ur Phencyclidine Scrn NEGATIVE 05/30/20 09:11 Ur Amphetamines Screen NEGATIVE 05/30/20 09:11 U Benzodiazepines Scrn NEGATIVE 05/30/20 09:11 Urine Cocaine Screen UNCONFIRMED POSITIVE 05/30/20 09:11 U Marijuana (THC) Screen UNCONFIRMED POSITIVE 05/30/20 09:11 Serum Alcohol < 10 mg/dL (NONE DETECTED) 05/30/20 08:06 05/30/20 08:06 Troponin I < 0.012 Impressions: Head CT 05/30/20 10:15 IMPRESSION: NO ACUTE INTRACRANIAL IMAGING FINDINGS. EVIDENCE OF ACUTE STROKE: NO. Plan Plan of Treatment: Stop smoking crack/marijuana/tobacco Stop drinking alcohol Follow-up with PCP Follow-up with psychiatry Time Spent: Greater than 30 Minutes Stroke Is this a Stroke Patient?: No Acute Heart Failure - Is this a Heart Failure Patient?: No
[2020-06-01 14:46] LABS: INSULIN 9.8 uIU/mL (2.6-24.9)
== END 2020-05-31 13:19 | disposition home or self-care (01) | DRG 93 ==
LOC: ER 07:44 → EH 12:32 → 3S 17:34
PROVIDERS: ADMIT Internal Medicine; ATTEND Internal Medicine
DX: G92 Toxic encephalopathy (principal); E16.2 Hypoglycemia, unspecified; F43.10 Post-traumatic stress disorder, unspecified; F31.9 Bipolar disorder, unspecified; I16.0 Hypertensive urgency; F17.200 Nicotine dependence, unspecified, uncomplicated; B88.8 Other specified infestations; F14.10 Cocaine abuse, uncomplicated; F12.10 Cannabis abuse, uncomplicated; Z91.5 Personal history of self-harm; I10 Essential (primary) hypertension; J44.9 Chronic obstructive pulmonary disease, unspecified; E03.9 Hypothyroidism, unspecified; M19.90 Unspecified osteoarthritis, unspecified site; Z88.0 Allergy status to penicillin; F10.10 Alcohol abuse, uncomplicated; Z79.899 Other long term (current) drug therapy
CPT/HCPCS: 36415; 70450; 80048; 80053; 80307; 81001; 82962; 83525; 83735; 84100; 84484; 84681; 85025; 93005; 93010; 96365; 96366; 99285; J1650; J3411; J3475; J3480; J3490; J7030; J7120

== ENCOUNTER 2020-09-05 16:42 | Emergency (ER) | payer MEDICARE ==
--- NOTE | 2020-09-05 17:10 | ER Document Report ---
ED Medical Screen (RME) - General Chief Complaint: Back Pain Stated Complaint: BACK PAIN Time Seen by Provider: 09/05/20 17:02 Primary Care Provider: ANGELA BROOKS PA-C [Primary Care Provider] - Follow up as needed Mode of Arrival: Ambulatory Information source: Patient Notes: 65-year-old male presented to ED for complaint of low back pain going down the right left leg. He states a week ago he turned wrong and something popped and he is not been able to walk properly or sit up straight due to the pain. He states he does not usually have any kind of pain like this. He states he is coming off all of his psych meds due to not having a primary doctor anymore he has had some mild back pain before but nothing like what he has right now. Denies any loss of control of bowels or bladder. He has control of his lower extremities but he has severe pain in the left leg. States at the same time he also hit his right wrist and it is swollen. He states that he had an MRI about a year and a half ago and he has narrowing of the disc and they wanted to do surgery he has not had that surgery done. He states the pain is tremendously worse for this last week since what ever he did to his low back. I have greeted and performed a rapid initial assessment of this patient. A comprehensive ED assessment and evaluation of the patient, analysis of test r esults and completion of medical decision making process will be conducted by an additional ED providers. TRAVEL OUTSIDE OF THE [place] IN LAST 30 DAYS: No - Related Data Allergies/Adverse Reactions: Penicillins Allergy (Unknown, Verified 05/30/20 08:25) Past Medical History - Past Medical History Cardiac Medical History: Reports: Hx Hypertension Pulmonary Medical History: Reports: Hx COPD, Hx Pneumonia Denies: Hx Tuberculosis Endocrine Medical History: Reports: Hx Hypothyroidism Renal/ Medical History: Denies: Hx Peritoneal Dialysis Musculoskeltal Medical History: Reports Hx Arthritis Psychiatric Medical History: Reports: Hx Attention Deficit Hyperactivity Disorder, Hx Bipolar Disorder Denies: Hx Depression Past Surgical History: Reports: Hx Orthopedic Surgery - spinal fusion at lower lumbar area - Immunizations Hx Diphtheria, Pertussis, Tetanus Vaccination: Yes Physical Exam - Vital signs Vitals: Temp Pulse BP 98.2 F 89 130/83 H 09/05/20 17:03 09/05/20 17:03 09/05/20 17:03 Course - Vital Signs Vital signs: Temp Pulse Resp BP Pulse Ox 98.2 F 89 130/83 H 09/05/20 17:03 09/05/20 17:03 09/05/20 17:03 Doctor's Discharge - Discharge Referrals: ANGELA BROOKS PA-C [Primary Care Provider] - Follow up as needed
[2020-09-05] MEDS ORDERED: IBUPROFEN 800 MG TABLET PO ONE (17:12)
--- NOTE | 2020-09-05 17:50 | RADIOLOGY REPORT (SQ) ---
EXAM DESCRIPTION: L SPINE WHOLE IMAGES COMPLETED DATE/TIME: 09/05/2020 4:36 pm REASON FOR STUDY: low back pain worse after pop COMPARISON: MRI lumbar spine, 04/26/2017. NUMBER OF VIEWS: Five views including obliques. TECHNIQUE: AP, lateral, oblique, and sacral radiographic images acquired of the lumbar spine. LIMITATIONS: None. FINDINGS: MINERALIZATION: Normal. SEGMENTATION: Normal. No transitional anatomy. ALIGNMENT: Normal. VERTEBRAE: Postoperative changes of prior laminectomy and posterior fusion spanning L2-S1. No eviden ce of hardware fracture, loosening or subsidence. Chronic compression deformity at T12 and L1, stabl e from prior. No evidence of acute fracture or cortical disruption. Multilevel spondylosis with kyra dging marginal osteophytes in the thoracolumbar spine. No lytic or blastic bone lesion. DISCS: Multilevel degenerative disc disease with loss of intervertebral disc heights. POSTERIOR ELEMENTS: Pedicles and facets are intact. No pars defect or posterior arch defects. HARDWARE: None in the spine. PARASPINAL SOFT TISSUES: Normal. PELVIS: Intact as visualized. No fractures or worrisome bone lesions. SI joints intact. OTHER: No other significant finding. IMPRESSION: No significant interval change. Posterior laminectomy and fusion spanning L2-S1 without evidence of hardware complication. No acute fracture or dislocation. Spondylosis and degenerative disc disease is stable. TECHNICAL DOCUMENTATION: JOB ID: [id number] [employer]- All Rights Reserved Reading location - IP/workstation name: [email or web address]
--- NOTE | 2020-09-05 17:51 | RADIOLOGY REPORT (SQ) ---
EXAM DESCRIPTION: WRIST RIGHT 3 VIEWS IMAGES COMPLETED DATE/TIME: 09/05/2020 4:37 pm REASON FOR STUDY: fell hit wrist. COMPARISON: None. NUMBER OF VIEWS: Three views. TECHNIQUE: AP, lateral, and oblique radiographic images acquired of the right wrist. LIMITATIONS: None. FINDINGS: MINERALIZATION: Normal. BONES: Chronic degenerative change at the distal ulna. No acute fracture or cortical disruption. SOFT TISSUES: No soft tissue swelling. No foreign body. OTHER: No other significant finding. IMPRESSION: No acute fracture or dislocation of the right wrist. Chronic degenerative change at the ulna. TECHNICAL DOCUMENTATION: JOB ID: [id number] 2010 [employer]- All Rights Reserved Reading location - IP/workstation name: [email or web address]
[2020-09-05] MEDS ORDERED: KETOROLAC TROMETHAMINE INJ/PF 30 MG/1 ML SDV IV ONE (18:25)
[2020-09-05] MEDS ORDERED: LORAZEPAM INJ 2 MG/1 ML VIAL IV ONE (18:26)
--- NOTE | 2020-09-05 18:27 | ER Document Report ---
ED General - General Chief Complaint: Back Pain Stated Complaint: BACK PAIN Time Seen by Provider: 09/05/20 17:02 Primary Care Provider: ANGELA BROOKS PA-C [Primary Care Provider] - Follow up as needed Mode of Arrival: Ambulatory Information source: Patient Notes: 5-year-old male presents to the emergency department with a complaint of back pain going down into his left leg. States that he was doing some activities and twisted wrong and felt a pop in his back and then pain radiating down into the left leg like fire. States that since that time has had severe pain which is not controlled by gabapentin and Tylenol. He has been sleeping in the recliner and trying to remedy the symptoms at home without success. He denies incontinence of urine or stool he also denies any numbness in the inguinal region. He does complain of some burning with urination for the past day. He denies fever, urgency or frequency. He also notes that he is out of his psych iatric medications for bipolar disease and has not been able to see his primary care doctor, off of his pain meds. TRAVEL OUTSIDE OF THE [place] IN LAST 30 DAYS: No - Related Data Allergies/Adverse Reactions: Penicillins Allergy (Unknown, Verified 05/30/20 08:25) Past Medical History - General Information source: Patient - Social History Smoking Status: Unknown if Ever Smoked Family History: Reviewed & Not Pertinent, COPD - Past Medical History Cardiac Medical History: Reports: Hx Hypertension Pulmonary Medical History: Reports: Hx COPD, Hx Pneumonia Denies: Hx Tuberculosis Endocrine Medical History: Reports: Hx Hypothyroidism Renal/ Medical History: Denies: Hx Peritoneal Dialysis Musculoskeletal Medical History: Reports Hx Arthritis Psychiatric Medical History: Reports: Hx Attention Deficit Hyperactivity Disorder, Hx Bipolar Disorder Denies: Hx Depression Past Surgical History: Reports: Hx Orthopedic Surgery - spinal fusion at lower lumbar area - Immunizations Hx Diphtheria, Pertussis, Tetanus Vaccination: Yes Review of Systems - Review of Systems Notes: Constitutional: Negative for fever. HENT: Negative for sore throat. Eyes: Negative for visual changes. Cardiovascular: Negative for chest pain. Respiratory: Negative for shortness of breath. Gastrointestinal: Negative for abdominal pain, vomiting or diarrhea. Genitourinary: Negative for dysuria. Musculoskeletal: See HPI Skin: Negative for rash. Neurological: Negative for headaches, weakness or numbness. 10 point ROS negative except as marked above and in HPI. Physical Exam - Vital signs Vitals: Temp Pulse BP 98.2 F 89 130/83 H 09/05/20 17:03 09/05/20 17:03 09/05/20 17:03 - Notes Notes: PHYSICAL EXAMINATION: Physical Exam: General: Well-nourished well-developed in no acute distress HEENT: NC/AT, pupils equal round and reactive to light, MM moist,nares clear, oropharynx clear, airway patent Neck: supple, no adenopathy, no masses. Good range of motion Lungs: clear, no wheezing, no rales no rhonchi CVS: Regular rate and rhythm no murmur gallop or rub Abdomen: Soft, active, nontender, no masses, no hepatosplenomegaly Ext: No edema, clubbing or cyanosis. Back: Tenderness in the right paraspinous muscle group [id number] region with no midline deformity or crepitus noted. Straight leg test is negative Neuro: Alert and responsive, moving all 4 extremities on command, cranial nerves intact, no focal findings Skin: Intact no open lesions, no rash PSYCH: Normal mood, normal affect. Course - Re-evaluation Re-evalutation: 09/05/20 20:34 Patient is given IV medications for the back pain. He was given Toradol, IV Medrol, lorazepam. Patient notes mild relief. He is being discharged home with baclofen, prednisone, Naprosyn and encouraged to follow-up with his primary care doctor for long-term management. And is in agreement with this plan. He is also encouraged to continue with the gabapentin. - Vital Signs Vital signs: Temp Pulse Resp BP Pulse Ox 98.2 F 89 130/83 H 09/05/20 17:03 09/05/20 17:03 09/05/20 17:03 - Diagnostic Test Radiology reviewed: Image reviewed, Reports reviewed Radiology results interpreted by me: 09/05/20 20:36 Lumbar Spine X-Ray 09/05/20 17:11 IMPRESSION: No significant interval change. Posterior laminectomy and fusion spanning L2-S1 without evidence of hardware complication. No acute fracture or dislocation. Spondylosis and degenerative disc disease is stable. Wrist X-Ray 09/05/20 17:11 IMPRESSION: No acute fracture or dislocation of the right wrist. Chronic degenerative change at the ulna. 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 Apparently degenerative arthritis with acute flareup and secondary sciatica. You are given prescriptions for medications prednisone, baclofen, and Naprosyn for pain. Please continue the gabapentin and follow-up with your primary physician regarding long-term management and strategies for treatment. If your symptoms are worsening or if you have other concerns you may return to emergency department for further evaluation and treatment HOME CARE INSTRUCTIONS & INFORMATION: Thank you for choosing us for your medical needs. We hope you're satisfied with the care you received. After you leave, you must properly care for your problem and, at the same time, observe its progress. Any condition can change. Some illnesses can change rapidly over hours or days. If your condition worsens, return to the Emergency Department or see your physician promptly. ABOUT YOUR X-RAYS AND EKG'S: If you had an EKG or X-rays taken, they have been read by the Emergency Physician. The X-rays and EKG's will also be read by a Radiologist or Regulatory Law Specialist within 24 hours. If discrepancies are noted, you will be notified by telephone. Please be certain the ED has a correct telephone number & address where you can be reached. Also, realize that some fractures or abnormalities do not show up on initial X-rays. If your symptoms continue, see your physician. ABOUT YOUR LABORATORY TEST: If you had laboratory tests, the results have been reviewed by the Emergency Physician. Some test results (for example cultures) may not be available for several days. You will be contacted if any test result shows you need additional treatment. Please be certain the ED has a correct telephone number and address where you can be reached. ABOUT YOUR MEDICATIONS: You will receive instructions on how to take your medicine on the prescription label you receive. Additional information may be provided by the Pharmacy. If you have questions afterwards, call the ED for clarification or further instructions. Some prescribed medications may cause drowsiness. Do not perform tasks such as driving a car or operating machinery without consulting your Pharmacist. If you feel you need a refill of pain medication, your condition will need re-evaluation. Please do not call for a refill of any medication. ABOUT YOUR SIGNATURE: Signature of this document acknowledges to followin. Understanding that you received emergency treatment and that you may be released before al medical problems are known or treated. Please be certain the ED has a correct phone number & address where you can be reached. 2. Acknowledgement that you will arrange for follow-up care as recommended. 3. Authorization for the Emergency Physician to provide information to your follow-up Physician in order to maximize your care. AT ANY TIME, IF YOUR SYMPTOMS CHANGE SIGNIFICANTLY OR WORSEN OR YOU DEVELOP NEW SYMPTOMS, RETURN TO THE EMERGENCY DEPARTMENT IMMEDIATELY FOR RE-EVALUATION. OUR GOAL IS TO PROVIDE EXCELLENT MEDICAL CARE! WE HOPE THAT WE HAVE MET YOUR EXPECTATIONS DURING YOUR EMERGENCY DEPARTMENT VISIT AND THAT YOU FEEL YOU HAVE RECEIVED EXCELLENT CARE! Prescriptions: Baclofen [Baclofen 10 mg Tablet] 10 mg PO TID #30 tab Prednisone [Deltasone 20 mg Tablet] 1 tab PO BID 5 Days #10 tablet Naproxen [Naprosyn] 500 mg PO BID #20 tablet Referrals: ANGELA BROOKS PA-C [Primary Care Provider] - Follow up as needed [facility] [Provider Group] - Follow up as needed
[2020-09-05 19:17] LABS: APPEARANCE,URINE CLEAR; BILIRUBIN,URINE NEGATIVE (NEGATIVE); COLOR,URINE YELLOW; GLUCOSE, URINE NEGATIVE (NEGATIVE); KETONES,URINE NEGATIVE (NEGATIVE); LEUKOCYTE ESTERASE,URINE NEGATIVE (NEGATIVE); NITRITE,URINE NEGATIVE (NEGATIVE); PROTEIN,URINE NEGATIVE (NEGATIVE); URINE SPECIFIC GRAVITY 1.024; UROBILINOGEN,URINE NEGATIVE mg/dL (<2.0)
[2020-09-05 20:55] VITALS: BP 137/90
== END 2020-09-05 20:55 | disposition home or self-care (01) ==
LOC: ER 16:42
DX: M54.32 Sciatica, left side (principal); M19.032 Primary osteoarthritis, left wrist; M47.816 Spondylosis without myelopathy or radiculopathy, lumbar region; I10 Essential (primary) hypertension; Z98.1 Arthrodesis status
CPT/HCPCS: 99284; 96374; 96375; 81001; 72110; 73110; A9270; J1885; J2060